=== PATIENT | female | born 1965 | race Caucasian/White ===

== ENCOUNTER 2020-09-27 17:25 | Inpatient (IN) | payer OTHER ==
[~2020-09-27] VITALS: Ht 152.4 cm; Wt 85.7 kg
[~2020-09-27 17:25] MED LIST: ARMOUR THYROID60 MG PO; B-125000 MCG PO; SPIRONOLACTONE100 MG PO; VITAMIN D2000 UNI1 PO
[2020-09-27] MEDS ORDERED: LEVOTHYROXINE50 MCG PO (17:59)
[2020-09-27] MEDS ORDERED: ACETAMINOPHEN 325 MG TAB PO NR (18:00)
[2020-09-27] MEDS ORDERED: SODIUM CHLORIDE 0.9% 50ML 50 ML ONE (18:09)
[2020-09-27] MEDS ORDERED: IOPAMIDOL 370 MG/ML 200 ML INFUS..BTL INJ ONE (18:09)
[2020-09-27] MEDS ORDERED: ACETAMINOPHEN 325 MG TAB ONE (18:12)
[2020-09-27] MEDS ORDERED: SODIUM CHLORIDE 0.9% 1000ML 1,000 ML IV SCH (20:15)
[2020-09-27] MEDS ORDERED: CEFTRIAXONE 1 GM VIAL IV ONE (20:15)
[2020-09-27] MEDS ORDERED: DEXAMETHASONE SOD PHOS 10 MG/1 ML VIAL IV ONE (20:15)
[2020-09-27] MEDS ORDERED: SODIUM CHLORIDE FLUSH 10 ML SYR INJ PRN (20:15)
[2020-09-27] MEDS ORDERED: SODIUM CHLORIDE 0.9% 250ML 250 ML ONE (20:33)
[2020-09-27] MEDS ORDERED: DEXAMETHASONE SOD PHOS INJ 4 MG/ML SDV ONE (20:33)
[2020-09-27] MEDS ORDERED: CEFTRIAXONE 1 GM VIAL ONE (20:34)
[2020-09-27] MEDS ORDERED: CEFTRIAXONE 1 GM in SODIUM CHLORIDE 0.9% 100 ML IV ONE (20:45)
[2020-09-28] VITALS (8 sets, daily range): BP systolic 97–130; BP diastolic 58–74
[2020-09-28 05:52] LABS: BASOPHILS % 0.2 % (0.0-1.0); HEMATOCRIT 44.1 % (34.2-44.1); HEMOGLOBIN 14.4 g/dL (12.0-16.0); LYMPHOCYTES # (AUTO) 0.7 (1.0-3.2); LYMPHOCYTES % 16.2 % (18.0-39.1); MEAN CORPUSCULAR HEMOGLOBIN 26.7 pg (28-32); MEAN CORPUSCULAR HGB CONC 32.7 g/dL (31-35); MEAN CORPUSCULAR VOLUME 81.7 fL (81-99); MONOCYTES # (AUTO) 0.2 (0.2-0.8); MONOCYTES % 3.9 % (4.4-11.3); NEUTROPHILS # (AUTO) 3.4 (2.1-6.9); NEUTROPHILS % 78.8 % (38.7-80.0); PLATELET COUNT 131 x10e3/uL (140-360); RED CELL DISTRIBUTION WIDTH 14.5 % (11.7-14.4)
[2020-09-28 07:28] LABS: ANION GAP 15.8 mmol/L (8-16); CALCIUM 8.3 mg/dL (8.4-10.2); CREATININE, SERUM 0.94 mg/dL (0.57-1.11); POTASSIUM 3.8 mmol/L (3.5-5.1)
[2020-09-28 07:46] LABS: ALBUMIN 2.8 g/dL (3.5-5.0); ALBUMIN/GLOBULIN RATIO 0.6 (0.8-2.0)
[2020-09-28] MEDS: ZINC SULFATE 220 MG CAP PO SCH (09:05)
[2020-09-28] MEDS: ENOXAPARIN 30 MG/0.3 ML SYR SC SCH ×2 (09:05→17:03)
[2020-09-28] MEDS: ASCORBIC ACID 500 MG TAB PO SCH ×2 (09:05→17:03)
[2020-09-28] MEDS: DEXAMETHASONE SOD PHOS 10 MG/1 ML VIAL IV SCH (09:05)
[2020-09-28] MEDS ORDERED: REMDESIVIR 200MG 200 MG IV ONE (12:00)
[2020-09-28] MEDS: CEFTRIAXONE 2 GM in SODIUM CHLORIDE 0.9% 100 ML IV SCH (12:31)
[2020-09-28] MEDS: ALBUTEROL SULFATE HFA 8GM INHALATION AEROSOL INH PRN (20:27)
[2020-09-29] VITALS (9 sets, daily range): BP systolic 94–120; BP diastolic 50–82
[2020-09-29] MEDS: ALBUTEROL SULFATE HFA 8GM INHALATION AEROSOL INH PRN (02:00)
[2020-09-29] MEDS: LEVOTHYROXINE SODIUM 50 MCG TAB PO SCH (05:37)
[2020-09-29 07:24] LABS: ALBUMIN 2.6 g/dL (3.5-5.0); ALBUMIN/GLOBULIN RATIO 0.6 (0.8-2.0); ANION GAP 15.1 mmol/L (8-16); CALCIUM 8.3 mg/dL (8.4-10.2); CREATININE, SERUM 0.84 mg/dL (0.57-1.11); POTASSIUM 4.1 mmol/L (3.5-5.1)
[2020-09-29] MEDS: ACETAMINOPHEN 325 MG TAB PO PRN ×2 (07:55→20:00)
[2020-09-29] MEDS: ASCORBIC ACID 500 MG TAB PO SCH ×2 (09:14→17:15)
[2020-09-29] MEDS: ENOXAPARIN 30 MG/0.3 ML SYR SC SCH ×2 (09:14→17:15)
[2020-09-29] MEDS: DEXAMETHASONE SOD PHOS 10 MG/1 ML VIAL IV SCH (09:14)
[2020-09-29] MEDS: ZINC SULFATE 220 MG CAP PO SCH (09:14)
[2020-09-29] MEDS: CEFTRIAXONE 2 GM in SODIUM CHLORIDE 0.9% 100 ML IV SCH (11:00)
[2020-09-29] MEDS: REMDESIVIR 100MG 100 MG IV SCH (14:28)
[2020-09-29] MEDS: CHOLESTYRAMINE 4 GM PACKET PO SCH (17:15)
[2020-09-30] VITALS (8 sets, daily range): BP systolic 103–118; BP diastolic 59–73
[2020-09-30] MEDS: CALCIUM CARBONATE 500 MG CHEWABLE TABS PO PRN ×2 (00:40→10:18)
[2020-09-30] MEDS: LEVOTHYROXINE SODIUM 50 MCG TAB PO SCH (05:31)
[2020-09-30 06:46] LABS: BASOPHILS % 0.1 % (0.0-1.0); HEMATOCRIT 42.4 % (34.2-44.1); HEMOGLOBIN 14.6 g/dL (12.0-16.0); LYMPHOCYTES # (AUTO) 0.9 (1.0-3.2); LYMPHOCYTES % 10.4 % (18.0-39.1); MEAN CORPUSCULAR HEMOGLOBIN 27.9 pg (28-32); MEAN CORPUSCULAR HGB CONC 34.4 g/dL (31-35); MEAN CORPUSCULAR VOLUME 81.1 fL (81-99); MONOCYTES # (AUTO) 0.6 (0.2-0.8); MONOCYTES % 7.6 % (4.4-11.3); NEUTROPHILS # (AUTO) 6.7 (2.1-6.9); NEUTROPHILS % 80.4 % (38.7-80.0); PLATELET COUNT 169 x10e3/uL (140-360); RED BLOOD COUNT 5.23 x10e6/uL (3.6-5.1); RED CELL DISTRIBUTION WIDTH 14.6 % (11.7-14.4)
[2020-09-30 07:20] LABS: ANION GAP 16.9 mmol/L (8-16); CALCIUM 8.5 mg/dL (8.4-10.2); CREATININE, SERUM 0.71 mg/dL (0.57-1.11); POTASSIUM 3.9 mmol/L (3.5-5.1)
[2020-09-30] MEDS: DEXAMETHASONE SOD PHOS 10 MG/1 ML VIAL IV SCH (09:07)
[2020-09-30] MEDS: ZINC SULFATE 220 MG CAP PO SCH (09:07)
[2020-09-30] MEDS: ASCORBIC ACID 500 MG TAB PO SCH ×2 (09:07→17:02)
[2020-09-30] MEDS: CHOLESTYRAMINE 4 GM PACKET PO SCH ×2 (09:07→17:02)
[2020-09-30] MEDS: ENOXAPARIN 30 MG/0.3 ML SYR SC SCH ×2 (09:08→17:02)
[2020-09-30 10:13] LABS: ALBUMIN 2.6 g/dL (3.5-5.0); ALBUMIN/GLOBULIN RATIO 0.7 (0.8-2.0); ANION GAP 15.6 mmol/L (8-16); CALCIUM 8.4 mg/dL (8.4-10.2); CREATININE, SERUM 0.75 mg/dL (0.57-1.11); POTASSIUM 3.6 mmol/L (3.5-5.1)
[2020-09-30] MEDS: CEFTRIAXONE 2 GM in SODIUM CHLORIDE 0.9% 100 ML IV SCH (11:11)
[2020-09-30] MEDS: REMDESIVIR 100MG 100 MG IV SCH (14:39)
[2020-10-01] VITALS (8 sets, daily range): BP systolic 103–126; BP diastolic 45–74
[2020-10-01] MEDS: LEVOTHYROXINE SODIUM 50 MCG TAB PO SCH (05:21)
[2020-10-01 06:53] LABS: BASOPHILS % 0.2 % (0.0-1.0); HEMATOCRIT 43.7 % (34.2-44.1); HEMOGLOBIN 13.9 g/dL (12.0-16.0); LYMPHOCYTES # (AUTO) 1.2 (1.0-3.2); LYMPHOCYTES % 13.4 % (18.0-39.1); MEAN CORPUSCULAR HGB CONC 31.8 g/dL (31-35); MEAN CORPUSCULAR VOLUME 81.8 fL (81-99); MONOCYTES # (AUTO) 0.7 (0.2-0.8); MONOCYTES % 7.8 % (4.4-11.3); NEUTROPHILS # (AUTO) 6.7 (2.1-6.9); NEUTROPHILS % 76.1 % (38.7-80.0); PLATELET COUNT 201 x10e3/uL (140-360); RED BLOOD COUNT 5.34 x10e6/uL (3.6-5.1); RED CELL DISTRIBUTION WIDTH 14.5 % (11.7-14.4)
[2020-10-01 07:13] LABS: ALBUMIN 2.5 g/dL (3.5-5.0); ALBUMIN/GLOBULIN RATIO 0.6 (0.8-2.0); ANION GAP 16.7 mmol/L (8-16); CALCIUM 8.3 mg/dL (8.4-10.2); CREATININE, SERUM 0.79 mg/dL (0.57-1.11); POTASSIUM 3.7 mmol/L (3.5-5.1)
[2020-10-01 07:24] LABS: LYMPHOCYTES % (MANUAL) 15 % (19-48); MONOCYTES % (MANUAL) 6 % (3.4-9.0); NEUTROPHILS % (MANUAL) 79 % (40-74); RBC MORPHOLOGY COMMENT NORMAL
[2020-10-01 07:25] LABS: PLATELET ESTIMATE ADEQUATE; PLATELET MORPHOLOGY COMMENT NORMAL
[2020-10-01] MEDS ORDERED: SODIUM CHLORIDE 0.9% 100 ML ONE (07:36)
[2020-10-01] MEDS: ZINC SULFATE 220 MG CAP PO SCH (07:55)
[2020-10-01] MEDS: ASCORBIC ACID 500 MG TAB PO SCH ×2 (07:55→16:25)
[2020-10-01] MEDS: CHOLESTYRAMINE 4 GM PACKET PO SCH ×2 (07:55→16:25)
[2020-10-01] MEDS: DEXAMETHASONE SOD PHOS 10 MG/1 ML VIAL IV SCH (07:55)
[2020-10-01] MEDS ORDERED: SODIUM CHLORIDE 0.9% 250ML 250 ML ONE (08:02)
[2020-10-01] MEDS: ENOXAPARIN 30 MG/0.3 ML SYR SC SCH ×2 (08:35→16:25)
[2020-10-01] MEDS ORDERED: SODIUM CHLORIDE 0.9% 500ML 500 ML ONE (10:40)
[2020-10-01] MEDS: CEFTRIAXONE 2 GM in SODIUM CHLORIDE 0.9% 100 ML IV SCH (11:18)
[2020-10-01] MEDS: ONDANSETRON HCL INJ 2MG/ML 2ML 2 MG/ML VIAL IV PRN (12:10)
[2020-10-01] MEDS: REMDESIVIR 100MG 100 MG IV SCH (12:55)
[2020-10-01] MEDS ORDERED: TOCILIZUMAB 400 MG in SODIUM CHLORIDE 0.9% 100 ML IV ONE (14:00)
[2020-10-01] MEDS: CALCIUM CARBONATE 500 MG CHEWABLE TABS PO PRN (19:53)
[2020-10-02 01:14] VITALS: BP 99/54
[2020-10-02 05:11] VITALS: BP 97/55
[2020-10-02] MEDS: LEVOTHYROXINE SODIUM 50 MCG TAB PO SCH (06:28)
[2020-10-02 07:06] LABS: BASOPHILS % 0.2 % (0.0-1.0); EOSINOPHILS % 0.1 % (0.0-6.0); HEMATOCRIT 40.4 % (34.2-44.1); HEMOGLOBIN 13.2 g/dL (12.0-16.0); LYMPHOCYTES # (AUTO) 1.4 (1.0-3.2); LYMPHOCYTES % 13.5 % (18.0-39.1); MEAN CORPUSCULAR HEMOGLOBIN 26.5 pg (28-32); MEAN CORPUSCULAR HGB CONC 32.7 g/dL (31-35); MONOCYTES # (AUTO) 0.5 (0.2-0.8); MONOCYTES % 4.6 % (4.4-11.3); NEUTROPHILS # (AUTO) 8.4 (2.1-6.9); NEUTROPHILS % 79.8 % (38.7-80.0); PLATELET COUNT 215 x10e3/uL (140-360); RED BLOOD COUNT 4.99 x10e6/uL (3.6-5.1); RED CELL DISTRIBUTION WIDTH 14.3 % (11.7-14.4)
[2020-10-02 07:34] LABS: ALBUMIN 2.3 g/dL (3.5-5.0); ALBUMIN/GLOBULIN RATIO 0.6 (0.8-2.0); ANION GAP 13.7 mmol/L (8-16); CREATININE, SERUM 0.69 mg/dL (0.57-1.11); POTASSIUM 3.7 mmol/L (3.5-5.1)
[2020-10-02 08:36] LABS: BAND NEUTROPHILS % (MANUAL) 4 %; LYMPHOCYTES % (MANUAL) 12 % (19-48); MONOCYTES % (MANUAL) 4 % (3.4-9.0); NEUTROPHILS % (MANUAL) 80 % (40-74)
[2020-10-02 09:00] VITALS: BP 97/55
[2020-10-02] MEDS: CHOLESTYRAMINE 4 GM PACKET PO SCH ×2 (09:00→17:00)
[2020-10-02] MEDS: ZINC SULFATE 220 MG CAP PO SCH (11:39)
[2020-10-02] MEDS: ASCORBIC ACID 500 MG TAB PO SCH ×2 (11:39→19:41)
[2020-10-02] MEDS: ACETAMINOPHEN 325 MG TAB PO PRN (11:40)
[2020-10-02] MEDS: ENOXAPARIN 30 MG/0.3 ML SYR SC SCH ×2 (11:51→19:41)
[2020-10-02] MEDS: DEXAMETHASONE SOD PHOS 10 MG/1 ML VIAL IV SCH (11:51)
[2020-10-02] MEDS: REMDESIVIR 100MG 100 MG IV SCH (15:00)
[2020-10-02] MEDS: CEFTRIAXONE 2 GM in SODIUM CHLORIDE 0.9% 100 ML IV SCH (15:16)
[2020-10-02 16:08] VITALS: BP 102/50
[2020-10-02] MEDS: HYDROCODONE/APAP 5MG-325MG TAB PO PRN (19:41)
[2020-10-02 20:00] VITALS: BP 107/59
[2020-10-02 23:11] VITALS: BP 107/59
[2020-10-03] VITALS (9 sets, daily range): BP systolic 87–112; BP diastolic 46–70
[2020-10-03] MEDS: HYDROCODONE/APAP 5MG-325MG TAB PO PRN ×2 (05:17→21:03)
[2020-10-03] MEDS: LEVOTHYROXINE SODIUM 50 MCG TAB PO SCH (05:17)
[2020-10-03 05:39] LABS: ALBUMIN 2.2 g/dL (3.5-5.0); ALBUMIN/GLOBULIN RATIO 0.5 (0.8-2.0); ANION GAP 16.1 mmol/L (8-16); CALCIUM 8.2 mg/dL (8.4-10.2); CREATININE, SERUM 0.64 mg/dL (0.57-1.11); POTASSIUM 4.1 mmol/L (3.5-5.1)
[2020-10-03 07:22] LABS: BASOPHILS % 0.1 % (0.0-1.0); EOSINOPHILS % 0.2 % (0.0-6.0); HEMATOCRIT 39.7 % (34.2-44.1); HEMOGLOBIN 12.9 g/dL (12.0-16.0); LYMPHOCYTES # (AUTO) 1.1 (1.0-3.2); LYMPHOCYTES % 7.5 % (18.0-39.1); MEAN CORPUSCULAR HEMOGLOBIN 26.4 pg (28-32); MEAN CORPUSCULAR HGB CONC 32.5 g/dL (31-35); MEAN CORPUSCULAR VOLUME 81.2 fL (81-99); MONOCYTES # (AUTO) 0.5 (0.2-0.8); MONOCYTES % 3.6 % (4.4-11.3); NEUTROPHILS # (AUTO) 12.5 (2.1-6.9); NEUTROPHILS % 87.1 % (38.7-80.0); PLATELET COUNT 193 x10e3/uL (140-360); RED BLOOD COUNT 4.89 x10e6/uL (3.6-5.1)
[2020-10-03] MEDS: DEXAMETHASONE SOD PHOS 10 MG/1 ML VIAL IV SCH (08:13)
[2020-10-03] MEDS: CHOLESTYRAMINE 4 GM PACKET PO SCH ×2 (08:13→16:52)
[2020-10-03] MEDS: ENOXAPARIN 30 MG/0.3 ML SYR SC SCH ×2 (08:13→16:52)
[2020-10-03] MEDS: GUAIFENESIN/CODEINE 10 ML CUP PO PRN ×2 (08:15→21:03)
[2020-10-03] MEDS: ASCORBIC ACID 500 MG TAB PO SCH ×2 (09:13→17:26)
[2020-10-03] MEDS: ZINC SULFATE 220 MG CAP PO SCH (09:13)
[2020-10-04] VITALS (7 sets, daily range): BP systolic 100–116; BP diastolic 52–66
[2020-10-04 04:18] LABS: BASOPHILS % 0.2 % (0.0-1.0); EOSINOPHILS % 0.1 % (0.0-6.0); LYMPHOCYTES # (AUTO) 0.8 (1.0-3.2); LYMPHOCYTES % 6.5 % (18.0-39.1); MEAN CORPUSCULAR HEMOGLOBIN 26.5 pg (28-32); MEAN CORPUSCULAR HGB CONC 32.5 g/dL (31-35); MEAN CORPUSCULAR VOLUME 81.6 fL (81-99); MONOCYTES # (AUTO) 0.3 (0.2-0.8); MONOCYTES % 2.7 % (4.4-11.3); NEUTROPHILS # (AUTO) 11.2 (2.1-6.9); NEUTROPHILS % 88.9 % (38.7-80.0); PLATELET COUNT 160 x10e3/uL (140-360); RED CELL DISTRIBUTION WIDTH 13.9 % (11.7-14.4)
[2020-10-04 05:28] LABS: ALBUMIN 2.1 g/dL (3.5-5.0); ALBUMIN/GLOBULIN RATIO 0.5 (0.8-2.0); ANION GAP 13.2 mmol/L (8-16); CALCIUM 8.1 mg/dL (8.4-10.2); CREATININE, SERUM 0.64 mg/dL (0.57-1.11); POTASSIUM 4.2 mmol/L (3.5-5.1)
[2020-10-04] MEDS: LEVOTHYROXINE SODIUM 50 MCG TAB PO SCH (06:07)
[2020-10-04] MEDS: CHOLESTYRAMINE 4 GM PACKET PO SCH ×2 (08:03→17:24)
[2020-10-04] MEDS: DEXAMETHASONE SOD PHOS 10 MG/1 ML VIAL IV SCH (08:03)
[2020-10-04] MEDS: ENOXAPARIN 30 MG/0.3 ML SYR SC SCH ×2 (08:07→17:24)
[2020-10-04] MEDS: ZINC SULFATE 220 MG CAP PO SCH (09:05)
[2020-10-04] MEDS: ASCORBIC ACID 500 MG TAB PO SCH ×2 (09:05→17:24)
[2020-10-04] MEDS: CALCIUM CARBONATE 500 MG CHEWABLE TABS PO PRN (18:39)
[2020-10-05] VITALS (8 sets, daily range): BP systolic 81–107; BP diastolic 52–75
[2020-10-05] MEDS: GUAIFENESIN/CODEINE 10 ML CUP PO PRN (04:26)
[2020-10-05] MEDS: LEVOTHYROXINE SODIUM 50 MCG TAB PO SCH (06:00)
[2020-10-05 06:33] LABS: BASOPHILS % 0.2 % (0.0-1.0); EOSINOPHILS # (AUTO) 0.1 (0.0-0.4); EOSINOPHILS % 0.8 % (0.0-6.0); HEMATOCRIT 40.2 % (34.2-44.1); HEMOGLOBIN 13.3 g/dL (12.0-16.0); LYMPHOCYTES # (AUTO) 0.8 (1.0-3.2); LYMPHOCYTES % 4.9 % (18.0-39.1); MEAN CORPUSCULAR HEMOGLOBIN 26.9 pg (28-32); MEAN CORPUSCULAR HGB CONC 33.1 g/dL (31-35); MEAN CORPUSCULAR VOLUME 81.2 fL (81-99); MONOCYTES # (AUTO) 0.3 (0.2-0.8); MONOCYTES % 1.7 % (4.4-11.3); NEUTROPHILS # (AUTO) 14.7 (2.1-6.9); NEUTROPHILS % 91.1 % (38.7-80.0); PLATELET COUNT 186 x10e3/uL (140-360); RED BLOOD COUNT 4.95 x10e6/uL (3.6-5.1); RED CELL DISTRIBUTION WIDTH 14.2 % (11.7-14.4)
[2020-10-05] MEDS: HYDROCODONE/APAP 5MG-325MG TAB PO PRN (06:33)
[2020-10-05 06:53] LABS: ALBUMIN 2.2 g/dL (3.5-5.0); ALBUMIN/GLOBULIN RATIO 0.5 (0.8-2.0); ANION GAP 14.7 mmol/L (8-16); CALCIUM 7.9 mg/dL (8.4-10.2); CREATININE, SERUM 0.62 mg/dL (0.57-1.11); POTASSIUM 3.7 mmol/L (3.5-5.1)
[2020-10-05] MEDS: CHOLESTYRAMINE 4 GM PACKET PO SCH ×2 (08:19→16:08)
[2020-10-05] MEDS: ASCORBIC ACID 500 MG TAB PO SCH ×2 (09:01→16:08)
[2020-10-05] MEDS: ZINC SULFATE 220 MG CAP PO SCH (09:01)
[2020-10-05] MEDS: ENOXAPARIN 30 MG/0.3 ML SYR SC SCH (20:48)
[2020-10-06] VITALS (8 sets, daily range): BP systolic 94–103; BP diastolic 46–76
[2020-10-06] MEDS: GUAIFENESIN/CODEINE 10 ML CUP PO PRN ×2 (01:20→20:40)
[2020-10-06] MEDS: LEVOTHYROXINE SODIUM 50 MCG TAB PO SCH ×2 (05:22→21:56)
[2020-10-06] MEDS: ONDANSETRON HCL INJ 2MG/ML 2ML 2 MG/ML VIAL IV PRN (05:30)
[2020-10-06] MEDS: HYDROCODONE/APAP 5MG-325MG TAB PO PRN (05:31)
[2020-10-06 05:45] LABS: BASOPHILS % 0.2 % (0.0-1.0); EOSINOPHILS # (AUTO) 0.1 (0.0-0.4); EOSINOPHILS % 0.9 % (0.0-6.0); HEMATOCRIT 41.6 % (34.2-44.1); HEMOGLOBIN 13.3 g/dL (12.0-16.0); LYMPHOCYTES # (AUTO) 0.9 (1.0-3.2); LYMPHOCYTES % 5.7 % (18.0-39.1); MEAN CORPUSCULAR HEMOGLOBIN 26.3 pg (28-32); MEAN CORPUSCULAR VOLUME 82.2 fL (81-99); MONOCYTES # (AUTO) 0.2 (0.2-0.8); MONOCYTES % 1.3 % (4.4-11.3); NEUTROPHILS # (AUTO) 14.6 (2.1-6.9); NEUTROPHILS % 90.8 % (38.7-80.0); PLATELET COUNT 177 x10e3/uL (140-360); RED BLOOD COUNT 5.06 x10e6/uL (3.6-5.1); RED CELL DISTRIBUTION WIDTH 14.1 % (11.7-14.4)
[2020-10-06 06:16] LABS: ALBUMIN 2.1 g/dL (3.5-5.0); ALBUMIN/GLOBULIN RATIO 0.5 (0.8-2.0); ANION GAP 18.2 mmol/L (8-16); CALCIUM 8.1 mg/dL (8.4-10.2); CREATININE, SERUM 0.63 mg/dL (0.57-1.11); POTASSIUM 4.2 mmol/L (3.5-5.1)
[2020-10-06] MEDS: CHOLESTYRAMINE 4 GM PACKET PO SCH ×2 (08:06→16:05)
[2020-10-06] MEDS: ASCORBIC ACID 500 MG TAB PO SCH ×2 (08:06→16:05)
[2020-10-06] MEDS: ENOXAPARIN 30 MG/0.3 ML SYR SC SCH ×2 (08:06→20:40)
[2020-10-06] MEDS: ZINC SULFATE 220 MG CAP PO SCH (08:06)
[2020-10-06] MEDS: ACETAMINOPHEN 325 MG TAB PO PRN (15:35)
[2020-10-07] VITALS (13 sets, daily range): BP systolic 86–120; BP diastolic 50–87
[2020-10-07] MEDS: LEVOTHYROXINE SODIUM 50 MCG TAB PO SCH (05:02)
[2020-10-07 05:04] LABS: BASOPHILS % 0.2 % (0.0-1.0); EOSINOPHILS # (AUTO) 0.2 (0.0-0.4); EOSINOPHILS % 1.2 % (0.0-6.0); HEMATOCRIT 41.3 % (34.2-44.1); HEMOGLOBIN 13.4 g/dL (12.0-16.0); LYMPHOCYTES # (AUTO) 0.9 (1.0-3.2); LYMPHOCYTES % 5.3 % (18.0-39.1); MEAN CORPUSCULAR HEMOGLOBIN 26.6 pg (28-32); MEAN CORPUSCULAR HGB CONC 32.4 g/dL (31-35); MEAN CORPUSCULAR VOLUME 81.9 fL (81-99); MONOCYTES # (AUTO) 0.2 (0.2-0.8); NEUTROPHILS # (AUTO) 14.7 (2.1-6.9); NEUTROPHILS % 90.9 % (38.7-80.0); PLATELET COUNT 144 x10e3/uL (140-360); RED BLOOD COUNT 5.04 x10e6/uL (3.6-5.1); RED CELL DISTRIBUTION WIDTH 13.9 % (11.7-14.4)
[2020-10-07 05:28] LABS: ALBUMIN 1.9 g/dL (3.5-5.0); ALBUMIN/GLOBULIN RATIO 0.4 (0.8-2.0); ANION GAP 17.5 mmol/L (8-16); CALCIUM 8.1 mg/dL (8.4-10.2); CREATININE, SERUM 0.74 mg/dL (0.57-1.11); POTASSIUM 4.5 mmol/L (3.5-5.1)
[2020-10-07] MEDS: ZINC SULFATE 220 MG CAP PO SCH (08:11)
[2020-10-07] MEDS: ENOXAPARIN 30 MG/0.3 ML SYR SC SCH ×2 (08:11→20:22)
[2020-10-07] MEDS: ASCORBIC ACID 500 MG TAB PO SCH ×2 (08:11→16:24)
[2020-10-07] MEDS: CHOLESTYRAMINE 4 GM PACKET PO SCH ×2 (08:11→16:24)
[2020-10-07 08:21] LABS: BAND NEUTROPHILS % (MANUAL) 2 %; LYMPHOCYTES % (MANUAL) 6 % (19-48); MONOCYTES % (MANUAL) 1 % (3.4-9.0); NEUTROPHILS % (MANUAL) 91 % (40-74)
[2020-10-07 08:22] LABS: PLATELET ESTIMATE ADEQUATE; PLATELET MORPHOLOGY COMMENT NORMAL; RBC MORPHOLOGY COMMENT NORMAL
[2020-10-07] MEDS ORDERED: LACTATED RINGER'S 500 ML INJ ONE (11:00)
[2020-10-07] MEDS: ACETAMINOPHEN 325 MG TAB PO PRN ×2 (12:52)
[2020-10-07] MEDS ORDERED: SUCCINYLCHOLINE CHLORIDE 20 MG/ML 10ML VIAL ONE (13:41)
[2020-10-07] MEDS ORDERED: WATER STERILE 10 ML VIAL ONE (13:41)
[2020-10-07] MEDS ORDERED: VECURONIUM BROMIDE FOR INJ 20 MG VIAL ONE (13:41)
[2020-10-07] MEDS ORDERED: MIDAZOLAM HCL 2 MG/2 ML VIAL ONE (13:41)
[2020-10-07] MEDS ORDERED: ETOMIDATE 2 MG/ML 10 ML INJ IV ONE (13:41)
[2020-10-07] MEDS: PIPERACILLIN/TAZOBACTAM 3.375 GM in SODIUM CHLORIDE 0.9% 50ML 50 ML IV SCH ×2 (15:37→20:22)
[2020-10-07] MEDS: LIDOCAINE 4% PATCH TP SCH (20:22)
[2020-10-07] MEDS ORDERED: DEXMEDETOMIDINE 200MCG/NS 50ML 50 ML IV PRN (22:15)
[2020-10-08] VITALS (26 sets, daily range): BP systolic 73–132; BP diastolic 44–64
[2020-10-08] MEDS: PIPERACILLIN/TAZOBACTAM 3.375 GM in SODIUM CHLORIDE 0.9% 50ML 50 ML IV SCH ×4 (02:46→20:54)
[2020-10-08] MEDS: GUAIFENESIN/CODEINE 10 ML CUP PO PRN (04:25)
[2020-10-08 04:53] LABS: BASOPHILS % 0.2 % (0.0-1.0); EOSINOPHILS # (AUTO) 0.1 (0.0-0.4); EOSINOPHILS % 0.3 % (0.0-6.0); HEMATOCRIT 37.4 % (34.2-44.1); LYMPHOCYTES # (AUTO) 0.6 (1.0-3.2); LYMPHOCYTES % 3.1 % (18.0-39.1); MEAN CORPUSCULAR HEMOGLOBIN 26.5 pg (28-32); MEAN CORPUSCULAR HGB CONC 32.1 g/dL (31-35); MEAN CORPUSCULAR VOLUME 82.6 fL (81-99); MONOCYTES # (AUTO) 0.2 (0.2-0.8); MONOCYTES % 1.2 % (4.4-11.3); NEUTROPHILS # (AUTO) 17.5 (2.1-6.9); NEUTROPHILS % 94.2 % (38.7-80.0); PLATELET COUNT 107 x10e3/uL (140-360); RED BLOOD COUNT 4.53 x10e6/uL (3.6-5.1); RED CELL DISTRIBUTION WIDTH 14.1 % (11.7-14.4)
[2020-10-08 05:09] LABS: ALBUMIN 1.5 g/dL (3.5-5.0); ALBUMIN/GLOBULIN RATIO 0.3 (0.8-2.0); ANION GAP 17.5 mmol/L (8-16); CALCIUM 7.8 mg/dL (8.4-10.2); CREATININE, SERUM 0.69 mg/dL (0.57-1.11); POTASSIUM 4.5 mmol/L (3.5-5.1)
[2020-10-08] MEDS: LEVOTHYROXINE SODIUM 50 MCG TAB PO SCH (06:09)
[2020-10-08] MEDS ORDERED: GUAIFENESIN/CODEINE 10 ML CUP PO PRN (07:30)
[2020-10-08] MEDS: ENOXAPARIN 30 MG/0.3 ML SYR SC SCH ×2 (08:08→20:54)
[2020-10-08] MEDS: ASCORBIC ACID 500 MG TAB PO SCH ×2 (08:08→16:12)
[2020-10-08] MEDS: ZINC SULFATE 220 MG CAP PO SCH (08:08)
[2020-10-08] MEDS: CHOLESTYRAMINE 4 GM PACKET PO SCH (08:09)
[2020-10-08] MEDS ORDERED: ROCURONIUM BROMIDE 1,250 MG in SODIUM CHLORIDE 0.9% 250ML 125 ML IV SCH (11:00)
[2020-10-08] MEDS ORDERED: SODIUM CHLORIDE 0.9% 1000ML 1,000 ML ONE (11:35)
[2020-10-08] MEDS: FENTANYL 2000MCG/NS 250 250 ML IV SCH ×2 (12:27→20:13)
[2020-10-08] MEDS: MIDAZOLAM HCL 5MG/ML 10ML VIAL 100 ML IV PRN ×3 (12:38→20:14)
[2020-10-08] MEDS: ROCURONIUM 1250MG/NS 250 250 ML IV SCH (16:12)
[2020-10-08] MEDS ORDERED: LACTATED RINGER'S 1,000 ML INJ ONE ×2 (16:30→17:30)
[2020-10-08 17:28] LABS: ABG HCO3 23 mmol/L (22-26); ABG PCO2 36 mmHg (35-45); ABG PH 7.41 (7.35-7.45); ABG PO2 101 mmHg (80-105); ABG TCO2 24
[2020-10-08] MEDS: ACETAMINOPHEN 325 MG TAB PO PRN (20:54)
[2020-10-08] MEDS: LIDOCAINE 4% PATCH TP SCH (20:54)
[2020-10-09] VITALS (25 sets, daily range): BP systolic 83–149; BP diastolic 42–69
[2020-10-09] MEDS: NOREPINEPHRINE 8 MG/D5W 250 ML 250 ML IV PRN ×2 (00:20→08:04)
[2020-10-09] MEDS: MIDAZOLAM HCL 5MG/ML 10ML VIAL 100 ML IV PRN ×5 (01:25→21:50)
[2020-10-09] MEDS: PIPERACILLIN/TAZOBACTAM 3.375 GM in SODIUM CHLORIDE 0.9% 50ML 50 ML IV SCH ×4 (01:47→21:07)
[2020-10-09 06:18] LABS: BASOPHILS # (AUTO) 0.1 (0.0-0.1); BASOPHILS % 0.3 % (0.0-1.0); EOSINOPHILS # (AUTO) 0.2 (0.0-0.4); EOSINOPHILS % 0.9 % (0.0-6.0); HEMATOCRIT 36.9 % (34.2-44.1); HEMOGLOBIN 11.9 g/dL (12.0-16.0); LYMPHOCYTES # (AUTO) 0.8 (1.0-3.2); LYMPHOCYTES % 3.6 % (18.0-39.1); MEAN CORPUSCULAR HEMOGLOBIN 26.9 pg (28-32); MEAN CORPUSCULAR HGB CONC 32.2 g/dL (31-35); MEAN CORPUSCULAR VOLUME 83.3 fL (81-99); MONOCYTES # (AUTO) 0.4 (0.2-0.8); MONOCYTES % 1.7 % (4.4-11.3); NEUTROPHILS # (AUTO) 20.4 (2.1-6.9); NEUTROPHILS % 91.5 % (38.7-80.0); PLATELET COUNT 134 x10e3/uL (140-360); RED BLOOD COUNT 4.43 x10e6/uL (3.6-5.1); RED CELL DISTRIBUTION WIDTH 14.2 % (11.7-14.4)
[2020-10-09] MEDS: LEVOTHYROXINE SODIUM 50 MCG TAB PO SCH (06:36)
[2020-10-09 06:40] LABS: ALBUMIN 1.4 g/dL (3.5-5.0); ALBUMIN/GLOBULIN RATIO 0.3 (0.8-2.0); ANION GAP 14.9 mmol/L (8-16); CALCIUM 7.7 mg/dL (8.4-10.2); CREATININE, SERUM 0.75 mg/dL (0.57-1.11); POTASSIUM 3.9 mmol/L (3.5-5.1)
[2020-10-09] MEDS: ASCORBIC ACID 500 MG TAB PO SCH ×2 (08:03→16:08)
[2020-10-09] MEDS: ZINC SULFATE 220 MG CAP PO SCH (08:03)
[2020-10-09] MEDS: ENOXAPARIN 30 MG/0.3 ML SYR SC SCH ×2 (08:03→21:07)
[2020-10-09 08:41] LABS: ABG HCO3 24 mmol/L (22-26); ABG PCO2 35 mmHg (35-45); ABG PH 7.45 (7.35-7.45); ABG PO2 201 mmHg (80-105); ABG TCO2 25
[2020-10-09] MEDS: FENTANYL 2000MCG/NS 250 250 ML IV SCH ×2 (10:08→16:48)
[2020-10-09] MEDS: ROCURONIUM 1250MG/NS 250 250 ML IV SCH (16:08)
[2020-10-09] MEDS: ACETAMINOPHEN 325 MG TAB PO PRN (18:46)
[2020-10-09] MEDS: LIDOCAINE 4% PATCH TP SCH (21:00)
[2020-10-10] VITALS (17 sets, daily range): BP systolic 84–187; BP diastolic 38–80
[2020-10-10] MEDS ORDERED: FENTANYL CITRATE/PF 100MCG/2 ML INJ ONE (01:06)
[2020-10-10] MEDS: PIPERACILLIN/TAZOBACTAM 3.375 GM in SODIUM CHLORIDE 0.9% 50ML 50 ML IV SCH ×4 (01:16→20:00)
[2020-10-10] MEDS: MIDAZOLAM HCL 5MG/ML 10ML VIAL 100 ML IV PRN ×5 (03:15→23:54)
[2020-10-10 06:07] LABS: BASOPHILS # (AUTO) 0.1 (0.0-0.1); BASOPHILS % 0.3 % (0.0-1.0); EOSINOPHILS # (AUTO) 0.3 (0.0-0.4); EOSINOPHILS % 1.9 % (0.0-6.0); HEMATOCRIT 34.3 % (34.2-44.1); HEMOGLOBIN 10.9 g/dL (12.0-16.0); LYMPHOCYTES # (AUTO) 0.8 (1.0-3.2); LYMPHOCYTES % 5.4 % (18.0-39.1); MEAN CORPUSCULAR HEMOGLOBIN 26.5 pg (28-32); MEAN CORPUSCULAR HGB CONC 31.8 g/dL (31-35); MEAN CORPUSCULAR VOLUME 83.5 fL (81-99); MONOCYTES # (AUTO) 0.2 (0.2-0.8); MONOCYTES % 1.3 % (4.4-11.3); NEUTROPHILS # (AUTO) 13.7 (2.1-6.9); NEUTROPHILS % 89.3 % (38.7-80.0); PLATELET COUNT 118 x10e3/uL (140-360); RED BLOOD COUNT 4.11 x10e6/uL (3.6-5.1); RED CELL DISTRIBUTION WIDTH 14.5 % (11.7-14.4)
[2020-10-10 06:38] LABS: ALBUMIN 1.1 g/dL (3.5-5.0); ALBUMIN/GLOBULIN RATIO 0.3 (0.8-2.0); ANION GAP 12.4 mmol/L (8-16); CALCIUM 7.3 mg/dL (8.4-10.2); CREATININE, SERUM 0.57 mg/dL (0.57-1.11); POTASSIUM 3.4 mmol/L (3.5-5.1)
[2020-10-10] MEDS: LEVOTHYROXINE SODIUM 50 MCG TAB PO SCH (06:40)
[2020-10-10] MEDS: NOREPINEPHRINE 8 MG/D5W 250 ML 250 ML IV PRN (06:41)
[2020-10-10] MEDS: FENTANYL 2000MCG/NS 250 250 ML IV SCH ×3 (06:43→19:30)
[2020-10-10 09:35] LABS: ABG HCO3 27 mmol/L (22-26); ABG PCO2 46 mmHg (35-45); ABG PH 7.37 (7.35-7.45); ABG PO2 63 mmHg (80-105); ABG TCO2 28
[2020-10-10] MEDS: ZINC SULFATE 220 MG CAP PO SCH (10:06)
[2020-10-10] MEDS: ENOXAPARIN 30 MG/0.3 ML SYR SC SCH ×2 (10:06→21:00)
[2020-10-10] MEDS: ASCORBIC ACID 500 MG TAB PO SCH ×2 (10:06→16:07)
[2020-10-10] MEDS: ROCURONIUM 1250MG/NS 250 250 ML IV SCH (16:05)
[2020-10-10] MEDS: LIDOCAINE 4% PATCH TP SCH (21:00)
[2020-10-10] MEDS: ACETAMINOPHEN 325 MG TAB PO PRN (23:48)
[2020-10-11] VITALS (16 sets, daily range): BP systolic 91–147; BP diastolic 51–75
[2020-10-11] MEDS: PIPERACILLIN/TAZOBACTAM 3.375 GM in SODIUM CHLORIDE 0.9% 50ML 50 ML IV SCH ×4 (02:19→21:00)
[2020-10-11 04:54] LABS: BASOPHILS # (AUTO) 0.1 (0.0-0.1); BASOPHILS % 0.3 % (0.0-1.0); EOSINOPHILS # (AUTO) 0.2 (0.0-0.4); EOSINOPHILS % 1.7 % (0.0-6.0); HEMATOCRIT 35.3 % (34.2-44.1); HEMOGLOBIN 10.8 g/dL (12.0-16.0); MEAN CORPUSCULAR HEMOGLOBIN 26.5 pg (28-32); MEAN CORPUSCULAR HGB CONC 30.6 g/dL (31-35); MEAN CORPUSCULAR VOLUME 86.5 fL (81-99); MONOCYTES # (AUTO) 0.4 (0.2-0.8); MONOCYTES % 2.7 % (4.4-11.3); NEUTROPHILS # (AUTO) 12.4 (2.1-6.9); NEUTROPHILS % 85.9 % (38.7-80.0); PLATELET COUNT 110 x10e3/uL (140-360); RED BLOOD COUNT 4.08 x10e6/uL (3.6-5.1); RED CELL DISTRIBUTION WIDTH 14.7 % (11.7-14.4)
[2020-10-11 05:23] LABS: ALBUMIN 1.2 g/dL (3.5-5.0); ALBUMIN/GLOBULIN RATIO 0.2 (0.8-2.0); CALCIUM 7.6 mg/dL (8.4-10.2); CREATININE, SERUM 0.69 mg/dL (0.57-1.11)
[2020-10-11] MEDS: LEVOTHYROXINE SODIUM 50 MCG TAB PO SCH (05:30)
[2020-10-11 08:22] LABS: ABG HCO3 28 mmol/L (22-26); ABG PCO2 47 mmHg (35-45); ABG PH 7.39 (7.35-7.45); ABG PO2 125 mmHg (80-105); ABG TCO2 30
[2020-10-11] MEDS: ENOXAPARIN 30 MG/0.3 ML SYR SC SCH ×2 (08:39→21:00)
[2020-10-11] MEDS: ASCORBIC ACID 500 MG TAB PO SCH ×2 (08:39→18:07)
[2020-10-11] MEDS: ZINC SULFATE 220 MG CAP PO SCH (08:39)
[2020-10-11] MEDS: ROCURONIUM 1250MG/NS 250 250 ML IV SCH (10:02)
[2020-10-11] MEDS: FENTANYL 2000MCG/NS 250 250 ML IV SCH (10:03)
[2020-10-11] MEDS: NOREPINEPHRINE 8 MG/D5W 250 ML 250 ML IV PRN (10:04)
[2020-10-11] MEDS: MIDAZOLAM HCL 5MG/ML 10ML VIAL 100 ML IV PRN ×2 (10:06→19:19)
[2020-10-11] MEDS: ALBUMIN 25% 25GM 100ML 0.25 GM/ML BTL IV SCH ×2 (14:00→22:11)
[2020-10-11] MEDS: FUROSEMIDE INJ 10 MG/ML 4 ML VIAL IV SCH ×2 (14:00→21:00)
[2020-10-11] MEDS: METHYLPREDNISOLONE SOD SUCC 40 MG/ML VIAL 1ML IV SCH ×2 (14:00→22:11)
[2020-10-11] MEDS ORDERED: MIDAZOLAM HCL 5MG/ML 10ML VIAL 100 ML IV ONE (19:26)
[2020-10-11] MEDS: LIDOCAINE 4% PATCH TP SCH (21:00)
[2020-10-12] VITALS (25 sets, daily range): BP systolic 90–160; BP diastolic 47–78
[2020-10-12] MEDS: MIDAZOLAM HCL 5MG/ML 10ML VIAL 100 ML IV PRN ×5 (01:45→23:07)
[2020-10-12] MEDS: PIPERACILLIN/TAZOBACTAM 3.375 GM in SODIUM CHLORIDE 0.9% 50ML 50 ML IV SCH ×4 (02:06→20:33)
[2020-10-12 05:23] LABS: BASOPHILS % 0.2 % (0.0-1.0); HEMATOCRIT 29.8 % (34.2-44.1); HEMOGLOBIN 9.5 g/dL (12.0-16.0); LYMPHOCYTES # (AUTO) 0.7 (1.0-3.2); LYMPHOCYTES % 6.3 % (18.0-39.1); MEAN CORPUSCULAR HEMOGLOBIN 26.8 pg (28-32); MEAN CORPUSCULAR HGB CONC 31.9 g/dL (31-35); MEAN CORPUSCULAR VOLUME 84.2 fL (81-99); MONOCYTES # (AUTO) 0.3 (0.2-0.8); MONOCYTES % 2.3 % (4.4-11.3); NEUTROPHILS # (AUTO) 9.7 (2.1-6.9); NEUTROPHILS % 87.6 % (38.7-80.0); PLATELET COUNT 106 x10e3/uL (140-360); RED BLOOD COUNT 3.54 x10e6/uL (3.6-5.1); RED CELL DISTRIBUTION WIDTH 14.4 % (11.7-14.4)
[2020-10-12] MEDS: LEVOTHYROXINE SODIUM 50 MCG TAB PO SCH (05:31)
[2020-10-12] MEDS: METHYLPREDNISOLONE SOD SUCC 40 MG/ML VIAL 1ML IV SCH ×2 (05:31→17:42)
[2020-10-12] MEDS: ALBUMIN 25% 25GM 100ML 0.25 GM/ML BTL IV SCH (05:31)
[2020-10-12 05:44] LABS: ALBUMIN 2.3 g/dL (3.5-5.0); ALBUMIN/GLOBULIN RATIO 0.5 (0.8-2.0); ANION GAP 17.3 mmol/L (8-16); CALCIUM 7.6 mg/dL (8.4-10.2); CREATININE, SERUM 0.81 mg/dL (0.57-1.11); POTASSIUM 3.3 mmol/L (3.5-5.1)
[2020-10-12] MEDS: FENTANYL 2000MCG/NS 250 250 ML IV SCH ×3 (06:49→20:15)
[2020-10-12] MEDS: ZINC SULFATE 220 MG CAP PO SCH (06:56)
[2020-10-12] MEDS: ASCORBIC ACID 500 MG TAB PO SCH ×2 (06:56→16:38)
[2020-10-12] MEDS: ENOXAPARIN 30 MG/0.3 ML SYR SC SCH ×2 (06:56→20:33)
[2020-10-12] MEDS ORDERED: POTASSIUM CHLORIDE 20MEQ/100ML 200 ML IV ONE (08:15)
[2020-10-12] MEDS ORDERED: FUROSEMIDE INJ 10 MG/ML 4 ML VIAL IV ONE (08:45)
[2020-10-12 09:39] LABS: ABG PCO2 47 mmHg (35-45); ABG PH 7.46 (7.35-7.45)
[2020-10-12 09:40] LABS: ABG HCO3 34 mmol/L (22-26); ABG PO2 100 mmHg (80-105); ABG TCO2 35
[2020-10-12] MEDS: ROCURONIUM 1250MG/NS 250 250 ML IV SCH (16:38)
[2020-10-12] MEDS: LIDOCAINE 4% PATCH TP SCH (20:33)
[2020-10-13] VITALS (25 sets, daily range): BP systolic 95–155; BP diastolic 49–78
[2020-10-13] MEDS: PIPERACILLIN/TAZOBACTAM 3.375 GM in SODIUM CHLORIDE 0.9% 50ML 50 ML IV SCH ×4 (01:56→20:30)
[2020-10-13] MEDS ORDERED: HEPARIN SOD/SOD CHLORIDE 1,000 ML ONE (02:37)
[2020-10-13] MEDS: FENTANYL 2000MCG/NS 250 250 ML IV SCH ×2 (03:35→10:16)
[2020-10-13] MEDS: NOREPINEPHRINE 8 MG/D5W 250 ML 250 ML IV PRN (03:40)
[2020-10-13] MEDS: MIDAZOLAM HCL 5MG/ML 10ML VIAL 100 ML IV PRN ×3 (03:40→13:41)
[2020-10-13] MEDS: ROCURONIUM 1250MG/NS 250 250 ML IV SCH (03:45)
[2020-10-13] MEDS: LEVOTHYROXINE SODIUM 50 MCG TAB PO SCH (06:14)
[2020-10-13] MEDS: METHYLPREDNISOLONE SOD SUCC 40 MG/ML VIAL 1ML IV SCH ×2 (06:14→16:42)
[2020-10-13 06:53] LABS: BASOPHILS % 0.3 % (0.0-1.0); EOSINOPHILS % 0.1 % (0.0-6.0); HEMATOCRIT 28.4 % (34.2-44.1); HEMOGLOBIN 8.5 g/dL (12.0-16.0); LYMPHOCYTES # (AUTO) 0.9 (1.0-3.2); LYMPHOCYTES % 7.2 % (18.0-39.1); MEAN CORPUSCULAR HEMOGLOBIN 26.2 pg (28-32); MEAN CORPUSCULAR HGB CONC 29.9 g/dL (31-35); MEAN CORPUSCULAR VOLUME 87.7 fL (81-99); MONOCYTES # (AUTO) 0.7 (0.2-0.8); MONOCYTES % 5.6 % (4.4-11.3); NEUTROPHILS # (AUTO) 10.2 (2.1-6.9); NEUTROPHILS % 82.1 % (38.7-80.0); PLATELET COUNT 131 x10e3/uL (140-360); RED BLOOD COUNT 3.24 x10e6/uL (3.6-5.1); RED CELL DISTRIBUTION WIDTH 15.1 % (11.7-14.4)
[2020-10-13 07:14] LABS: ALBUMIN 2.3 g/dL (3.5-5.0); ALBUMIN/GLOBULIN RATIO 0.6 (0.8-2.0); ANION GAP 16.9 mmol/L (8-16); CREATININE, SERUM 0.75 mg/dL (0.57-1.11); POTASSIUM 3.9 mmol/L (3.5-5.1)
[2020-10-13] MEDS: ENOXAPARIN 30 MG/0.3 ML SYR SC SCH ×2 (08:40→20:30)
[2020-10-13] MEDS: ZINC SULFATE 220 MG CAP PO SCH (08:40)
[2020-10-13] MEDS: ASCORBIC ACID 500 MG TAB PO SCH ×2 (08:40→16:42)
[2020-10-13 09:19] LABS: ABG HCO3 35 mmol/L (22-26); ABG PCO2 51 mmHg (35-45); ABG PH 7.43 (7.35-7.45); ABG PO2 84 mmHg (80-105); ABG TCO2 36
[2020-10-13] MEDS ORDERED: PROPOFOL IV EMULSION 10MG/ML 100 ML IV SCH (13:15)
[2020-10-13] MEDS: PROPOFOL IV EMULSION 10MG/ML 100 ML IV SCH (13:45)
[2020-10-13] MEDS ORDERED: FLUCONAZOLE 100 MG/NS 50 ML 50 ML IV SCH (17:00)
[2020-10-13] MEDS: LIDOCAINE 4% PATCH TP SCH (21:00)
[2020-10-14] VITALS (26 sets, daily range): BP systolic 91–196; BP diastolic 46–84
[2020-10-14] MEDS: FENTANYL 2000MCG/NS 250 250 ML IV SCH ×4 (00:11→22:04)
[2020-10-14] MEDS: MIDAZOLAM HCL 5MG/ML 10ML VIAL 100 ML IV PRN ×5 (00:11→22:04)
[2020-10-14] MEDS: PIPERACILLIN/TAZOBACTAM 3.375 GM in SODIUM CHLORIDE 0.9% 50ML 50 ML IV SCH ×3 (01:30→09:30)
[2020-10-14 05:30] LABS: BASOPHILS # (AUTO) 0.1 (0.0-0.1); BASOPHILS % 0.5 % (0.0-1.0); EOSINOPHILS % 0.1 % (0.0-6.0); HEMATOCRIT 31.8 % (34.2-44.1); HEMOGLOBIN 9.4 g/dL (12.0-16.0); LYMPHOCYTES # (AUTO) 1.3 (1.0-3.2); LYMPHOCYTES % 9.8 % (18.0-39.1); MEAN CORPUSCULAR HEMOGLOBIN 26.7 pg (28-32); MEAN CORPUSCULAR HGB CONC 29.6 g/dL (31-35); MEAN CORPUSCULAR VOLUME 90.3 fL (81-99); MONOCYTES % 7.6 % (4.4-11.3); NEUTROPHILS # (AUTO) 9.7 (2.1-6.9); NEUTROPHILS % 73.5 % (38.7-80.0); PLATELET COUNT 175 x10e3/uL (140-360); RED BLOOD COUNT 3.52 x10e6/uL (3.6-5.1); RED CELL DISTRIBUTION WIDTH 15.7 % (11.7-14.4)
[2020-10-14 05:43] LABS: ALBUMIN 2.3 g/dL (3.5-5.0); ALBUMIN/GLOBULIN RATIO 0.6 (0.8-2.0); CALCIUM 8.3 mg/dL (8.4-10.2); CREATININE, SERUM 0.68 mg/dL (0.57-1.11)
[2020-10-14] MEDS: LEVOTHYROXINE SODIUM 50 MCG TAB PO SCH (06:00)
[2020-10-14] MEDS: METHYLPREDNISOLONE SOD SUCC 40 MG/ML VIAL 1ML IV SCH (06:00)
[2020-10-14] MEDS: ROCURONIUM 1250MG/NS 250 250 ML IV SCH (06:00)
[2020-10-14] MEDS: ZINC SULFATE 220 MG CAP PO SCH (08:55)
[2020-10-14] MEDS: ENOXAPARIN 30 MG/0.3 ML SYR SC SCH ×2 (08:55→20:43)
[2020-10-14] MEDS: ASCORBIC ACID 500 MG TAB PO SCH ×2 (08:55→17:22)
[2020-10-14 09:59] LABS: ABG HCO3 35 mmol/L (22-26); ABG PCO2 58 mmHg (35-45); ABG PO2 77 mmHg (80-105); ABG TCO2 37
[2020-10-14] MEDS: PROPOFOL IV EMULSION 10MG/ML 100 ML IV SCH (10:32)
[2020-10-14] MEDS ORDERED: FUROSEMIDE INJ 10 MG/ML 4 ML VIAL ONE (19:26)
[2020-10-14] MEDS ORDERED: FUROSEMIDE INJ 10 MG/ML 4 ML VIAL IV ONE (19:45)
[2020-10-14] MEDS: LIDOCAINE 4% PATCH TP SCH (20:44)
[2020-10-15] VITALS (29 sets, daily range): BP systolic 65–181; BP diastolic 46–83
[2020-10-15 05:55] LABS: BASOPHILS # (AUTO) 0.1 (0.0-0.1); BASOPHILS % 0.6 % (0.0-1.0); EOSINOPHILS # (AUTO) 0.3 (0.0-0.4); HEMATOCRIT 34.2 % (34.2-44.1); HEMOGLOBIN 10.2 g/dL (12.0-16.0); LYMPHOCYTES # (AUTO) 2.1 (1.0-3.2); LYMPHOCYTES % 13.2 % (18.0-39.1); MEAN CORPUSCULAR HEMOGLOBIN 26.5 pg (28-32); MEAN CORPUSCULAR HGB CONC 29.8 g/dL (31-35); MEAN CORPUSCULAR VOLUME 88.8 fL (81-99); MONOCYTES # (AUTO) 0.7 (0.2-0.8); MONOCYTES % 4.4 % (4.4-11.3); NEUTROPHILS # (AUTO) 10.8 (2.1-6.9); NEUTROPHILS % 68.9 % (38.7-80.0); PLATELET COUNT 204 x10e3/uL (140-360); RED BLOOD COUNT 3.85 x10e6/uL (3.6-5.1); RED CELL DISTRIBUTION WIDTH 15.6 % (11.7-14.4)
[2020-10-15 06:17] LABS: ALBUMIN 2.5 g/dL (3.5-5.0); ALBUMIN/GLOBULIN RATIO 0.6 (0.8-2.0); ANION GAP 15.3 mmol/L (8-16); CALCIUM 8.3 mg/dL (8.4-10.2); CREATININE, SERUM 0.66 mg/dL (0.57-1.11); POTASSIUM 4.3 mmol/L (3.5-5.1)
[2020-10-15] MEDS: LEVOTHYROXINE SODIUM 50 MCG TAB PO SCH (06:21)
[2020-10-15] MEDS: MIDAZOLAM HCL 5MG/ML 10ML VIAL 100 ML IV PRN ×4 (06:25→22:42)
[2020-10-15] MEDS: FENTANYL 2000MCG/NS 250 250 ML IV SCH ×3 (06:25→20:58)
[2020-10-15] MEDS: PROPOFOL IV EMULSION 10MG/ML 100 ML IV SCH ×2 (07:00→22:03)
[2020-10-15] MEDS: ENOXAPARIN 30 MG/0.3 ML SYR SC SCH ×2 (08:11→22:18)
[2020-10-15 09:09] LABS: ABG HCO3 38 mmol/L (22-26); ABG PCO2 58 mmHg (35-45); ABG PH 7.42 (7.35-7.45); ABG PO2 60 mmHg (80-105); ABG TCO2 40
[2020-10-15 09:15] LABS: BAND NEUTROPHILS % (MANUAL) 2 %; EOSINOPHILS % (MANUAL) 2 % (0-7); LYMPHOCYTES % (MANUAL) 5 % (19-48); METAMYELOCYTES % (MANUAL) 5 % (0-0); MONOCYTES % (MANUAL) 6 % (3.4-9.0); NEUTROPHILS % (MANUAL) 79 % (40-74)
[2020-10-15 09:16] LABS: PLATELET ESTIMATE ADEQUATE; PLATELET MORPHOLOGY COMMENT NORMAL; POLYCHROMASIA FEW; RBC MORPHOLOGY COMMENT NORMAL
[2020-10-15] MEDS: ASCORBIC ACID 500 MG TAB PO SCH ×2 (09:21→17:08)
[2020-10-15] MEDS: ZINC SULFATE 220 MG CAP PO SCH (09:21)
[2020-10-15] MEDS: ROCURONIUM 1250MG/NS 250 250 ML IV SCH (13:23)
[2020-10-15] MEDS ORDERED: ALBUMIN 25% 25GM 100ML 0.25 GM/ML BTL IV ONE (18:45)
[2020-10-15] MEDS: NOREPINEPHRINE 8 MG/D5W 250 ML 250 ML IV SCH (18:46)
[2020-10-15] MEDS: LIDOCAINE 4% PATCH TP SCH (21:00)
[2020-10-16] VITALS (17 sets, daily range): BP systolic 95–130; BP diastolic 48–71
[2020-10-16] MEDS: FENTANYL 2000MCG/NS 250 250 ML IV SCH ×2 (03:20→09:45)
[2020-10-16] MEDS: MIDAZOLAM HCL 5MG/ML 10ML VIAL 100 ML IV PRN ×4 (03:20→19:51)
[2020-10-16 05:56] LABS: BASOPHILS # (AUTO) 0.1 (0.0-0.1); BASOPHILS % 0.5 % (0.0-1.0); EOSINOPHILS # (AUTO) 0.6 (0.0-0.4); EOSINOPHILS % 4.6 % (0.0-6.0); HEMATOCRIT 28.2 % (34.2-44.1); HEMOGLOBIN 8.4 g/dL (12.0-16.0); LYMPHOCYTES # (AUTO) 1.3 (1.0-3.2); LYMPHOCYTES % 10.4 % (18.0-39.1); MEAN CORPUSCULAR HEMOGLOBIN 26.6 pg (28-32); MEAN CORPUSCULAR HGB CONC 29.8 g/dL (31-35); MEAN CORPUSCULAR VOLUME 89.2 fL (81-99); MONOCYTES # (AUTO) 0.3 (0.2-0.8); MONOCYTES % 2.8 % (4.4-11.3); NEUTROPHILS # (AUTO) 8.7 (2.1-6.9); NEUTROPHILS % 72.3 % (38.7-80.0); PLATELET COUNT 166 x10e3/uL (140-360); RED BLOOD COUNT 3.16 x10e6/uL (3.6-5.1); RED CELL DISTRIBUTION WIDTH 15.7 % (11.7-14.4)
[2020-10-16] MEDS: LEVOTHYROXINE SODIUM 50 MCG TAB PO SCH (06:03)
[2020-10-16 06:13] LABS: ALBUMIN 2.4 g/dL (3.5-5.0); ALBUMIN/GLOBULIN RATIO 0.8 (0.8-2.0); ANION GAP 14.2 mmol/L (8-16); CALCIUM 8.1 mg/dL (8.4-10.2); CREATININE, SERUM 0.61 mg/dL (0.57-1.11); POTASSIUM 4.2 mmol/L (3.5-5.1)
[2020-10-16] MEDS: PROPOFOL IV EMULSION 10MG/ML 100 ML IV SCH ×2 (06:25→16:59)
[2020-10-16] MEDS ORDERED: ALBUMIN 25% 25GM 100ML 0.25 GM/ML BTL IV ONE (08:00)
[2020-10-16 09:00] LABS: ABG HCO3 35 mmol/L (22-26); ABG PCO2 57 mmHg (35-45); ABG PO2 92 mmHg (80-105); ABG TCO2 37
[2020-10-16] MEDS: FUROSEMIDE INJ 10 MG/ML 4 ML VIAL IV SCH ×2 (09:44→20:48)
[2020-10-16] MEDS: ASCORBIC ACID 500 MG TAB PO SCH ×2 (09:44→16:59)
[2020-10-16] MEDS: ZINC SULFATE 220 MG CAP PO SCH (09:45)
[2020-10-16] MEDS: ENOXAPARIN 30 MG/0.3 ML SYR SC SCH ×2 (10:14→20:48)
[2020-10-16] MEDS: ROCURONIUM 1250MG/NS 250 250 ML IV SCH (15:38)
[2020-10-16] MEDS: NOREPINEPHRINE 8 MG/D5W 250 ML 250 ML IV SCH (18:45)
[2020-10-16] MEDS: LIDOCAINE 4% PATCH TP SCH (19:45)
[2020-10-17] VITALS (25 sets, daily range): BP systolic 93–137; BP diastolic 51–62
[2020-10-17] MEDS: MIDAZOLAM HCL 5MG/ML 10ML VIAL 100 ML IV PRN ×5 (01:41→23:55)
[2020-10-17] MEDS: PROPOFOL IV EMULSION 10MG/ML 100 ML IV SCH ×4 (01:50→17:40)
[2020-10-17 04:48] LABS: BASOPHILS # (AUTO) 0.1 (0.0-0.1); BASOPHILS % 0.3 % (0.0-1.0); EOSINOPHILS # (AUTO) 0.7 (0.0-0.4); EOSINOPHILS % 5.1 % (0.0-6.0); HEMATOCRIT 30.5 % (34.2-44.1); LYMPHOCYTES # (AUTO) 1.1 (1.0-3.2); LYMPHOCYTES % 7.5 % (18.0-39.1); MEAN CORPUSCULAR HEMOGLOBIN 26.5 pg (28-32); MEAN CORPUSCULAR HGB CONC 29.5 g/dL (31-35); MEAN CORPUSCULAR VOLUME 89.7 fL (81-99); MONOCYTES # (AUTO) 0.4 (0.2-0.8); MONOCYTES % 2.9 % (4.4-11.3); NEUTROPHILS # (AUTO) 11.2 (2.1-6.9); NEUTROPHILS % 76.7 % (38.7-80.0); PLATELET COUNT 186 x10e3/uL (140-360); RED CELL DISTRIBUTION WIDTH 15.6 % (11.7-14.4)
[2020-10-17 05:13] LABS: ANION GAP 14.6 mmol/L (8-16); CREATININE, SERUM 0.65 mg/dL (0.57-1.11); POTASSIUM 4.6 mmol/L (3.5-5.1)
[2020-10-17 05:14] LABS: ALBUMIN 2.7 g/dL (3.5-5.0); ALBUMIN/GLOBULIN RATIO 0.8 (0.8-2.0); CALCIUM 8.7 mg/dL (8.4-10.2)
[2020-10-17] MEDS: LEVOTHYROXINE SODIUM 50 MCG TAB PO SCH (05:37)
[2020-10-17] MEDS: FENTANYL 2000MCG/NS 250 250 ML IV SCH ×3 (06:32→17:16)
[2020-10-17 07:14] LABS: ABG HCO3 43 mmol/L (22-26); ABG PCO2 75 mmHg (35-45); ABG PH 7.37 (7.35-7.45); ABG PO2 76 mmHg (80-105)
[2020-10-17 07:15] LABS: ABG TCO2 45
[2020-10-17] MEDS: ZINC SULFATE 220 MG CAP PO SCH (09:29)
[2020-10-17] MEDS: ASCORBIC ACID 500 MG TAB PO SCH ×2 (09:29→16:38)
[2020-10-17] MEDS: ENOXAPARIN 30 MG/0.3 ML SYR SC SCH ×2 (09:29→21:18)
[2020-10-17] MEDS ORDERED: ALBUMIN 25% 25GM 100ML 0.25 GM/ML BTL IV SCH (11:00)
[2020-10-17] MEDS: FUROSEMIDE INJ 10 MG/ML 4 ML VIAL IV SCH ×2 (11:43→21:18)
[2020-10-17] MEDS: ALBUMIN 25% 25GM 100ML 100 ML IV SCH ×2 (13:14→19:40)
[2020-10-17] MEDS: NOREPINEPHRINE 8 MG/D5W 250 ML 250 ML IV SCH (16:38)
[2020-10-17] MEDS: ROCURONIUM 1250MG/NS 250 250 ML IV SCH (16:38)
[2020-10-17] MEDS: LIDOCAINE 4% PATCH TP SCH (21:00)
[2020-10-18] VITALS (26 sets, daily range): BP systolic 96–139; BP diastolic 47–59
[2020-10-18] MEDS: PROPOFOL IV EMULSION 10MG/ML 100 ML IV SCH ×4 (03:06→21:30)
[2020-10-18] MEDS: ALBUMIN 25% 25GM 100ML 100 ML IV SCH (03:06)
[2020-10-18] MEDS: ACETAMINOPHEN 325 MG TAB PO PRN (03:07)
[2020-10-18] MEDS: FENTANYL 2000MCG/NS 250 250 ML IV SCH ×4 (03:11→16:15)
[2020-10-18] MEDS: MIDAZOLAM HCL 5MG/ML 10ML VIAL 100 ML IV PRN ×4 (05:05→21:30)
[2020-10-18 05:24] LABS: BASOPHILS # (AUTO) 0.1 (0.0-0.1); BASOPHILS % 0.4 % (0.0-1.0); EOSINOPHILS # (AUTO) 0.8 (0.0-0.4); EOSINOPHILS % 4.9 % (0.0-6.0); HEMATOCRIT 28.1 % (34.2-44.1); HEMOGLOBIN 8.3 g/dL (12.0-16.0); LYMPHOCYTES % 5.9 % (18.0-39.1); MEAN CORPUSCULAR HEMOGLOBIN 26.7 pg (28-32); MEAN CORPUSCULAR HGB CONC 29.5 g/dL (31-35); MEAN CORPUSCULAR VOLUME 90.4 fL (81-99); MONOCYTES # (AUTO) 0.7 (0.2-0.8); MONOCYTES % 4.2 % (4.4-11.3); NEUTROPHILS # (AUTO) 12.7 (2.1-6.9); NEUTROPHILS % 78.4 % (38.7-80.0); PLATELET COUNT 191 x10e3/uL (140-360); RED BLOOD COUNT 3.11 x10e6/uL (3.6-5.1); RED CELL DISTRIBUTION WIDTH 15.5 % (11.7-14.4)
[2020-10-18] MEDS: LEVOTHYROXINE SODIUM 50 MCG TAB PO SCH (05:30)
[2020-10-18 05:48] LABS: ALBUMIN 3.7 g/dL (3.5-5.0); ALBUMIN/GLOBULIN RATIO 1.2 (0.8-2.0); ANION GAP 15.3 mmol/L (8-16); CALCIUM 8.8 mg/dL (8.4-10.2); CREATININE, SERUM 0.68 mg/dL (0.57-1.11); POTASSIUM 4.3 mmol/L (3.5-5.1)
[2020-10-18 07:55] LABS: ABG HCO3 43 mmol/L (22-26); ABG PCO2 76 mmHg (35-45); ABG PH 7.35 (7.35-7.45); ABG PO2 56 mmHg (80-105); ABG TCO2 45
[2020-10-18] MEDS ORDERED: Vancomycin IV 1 GM in SODIUM CHLORIDE 0.9% 250ML 250 ML IV ONE (08:30)
[2020-10-18] MEDS: ZINC SULFATE 220 MG CAP PO SCH (08:58)
[2020-10-18] MEDS: ENOXAPARIN 30 MG/0.3 ML SYR SC SCH (08:58)
[2020-10-18] MEDS: ASCORBIC ACID 500 MG TAB PO SCH ×2 (08:58→17:01)
[2020-10-18] MEDS: FUROSEMIDE INJ 10 MG/ML 4 ML VIAL IV SCH ×2 (09:00→21:30)
[2020-10-18 10:19] LABS: LYMPHOCYTES % (MANUAL) 5 % (19-48)
[2020-10-18 10:21] LABS: ANISOCYTOSIS SLIGHT; BAND NEUTROPHILS % (MANUAL) 2 %; EOSINOPHILS % (MANUAL) 7 % (0-7); HYPOCHROMASIA SLIGHT; METAMYELOCYTES % (MANUAL) 2 % (0-0); MONOCYTES % (MANUAL) 4 % (3.4-9.0); NEUTROPHILS % (MANUAL) 77 % (40-74); PLATELET ESTIMATE ADEQUATE; PLATELET MORPHOLOGY COMMENT NORMAL; PROMYELOCYTES % (MANUAL) 1 % (0-0); RBC MORPHOLOGY COMMENT NORMAL
[2020-10-18] MEDS: MEROPENEM 1 GM in SODIUM CHLORIDE 0.9% 100 ML IV SCH ×2 (10:33→17:01)
[2020-10-18] MEDS: LIDOCAINE 4% PATCH TP SCH (21:00)
[2020-10-18] MEDS: ENOXAPARIN INJ 80 MG/0.8 ML SYR SC SCH (21:30)
[2020-10-18] MEDS: ROCURONIUM 1250MG/NS 250 250 ML IV SCH (21:30)
[2020-10-19] VITALS (18 sets, daily range): BP systolic 81–139; BP diastolic 45–69
[2020-10-19] MEDS: ACETAMINOPHEN 325 MG TAB PO PRN (00:27)
[2020-10-19] MEDS ORDERED: ACETAMINOPHEN 1000 MG/100 ML IV STA ×2 (01:16→12:17)
[2020-10-19] MEDS ORDERED: NOREPINEPHRINE 8 MG/D5W 250 ML 250 ML ONE (01:26)
[2020-10-19] MEDS: NOREPINEPHRINE 8 MG/D5W 250 ML 250 ML IV SCH ×2 (01:30→22:44)
[2020-10-19] MEDS: MEROPENEM 1 GM in SODIUM CHLORIDE 0.9% 100 ML IV SCH ×3 (02:18→17:29)
[2020-10-19] MEDS: MIDAZOLAM HCL 5MG/ML 10ML VIAL 100 ML IV PRN ×4 (02:33→22:45)
[2020-10-19] MEDS: PROPOFOL IV EMULSION 10MG/ML 100 ML IV SCH ×4 (03:08→22:45)
[2020-10-19] MEDS: ALBUMIN 25% 25GM 100ML 0.25 GM/ML BTL IV SCH ×3 (03:35→12:36)
[2020-10-19 05:04] LABS: BASOPHILS # (AUTO) 0.1 (0.0-0.1); BASOPHILS % 0.4 % (0.0-1.0); EOSINOPHILS # (AUTO) 1.1 (0.0-0.4); EOSINOPHILS % 6.3 % (0.0-6.0); HEMATOCRIT 29.7 % (34.2-44.1); HEMOGLOBIN 8.6 g/dL (12.0-16.0); LYMPHOCYTES # (AUTO) 1.3 (1.0-3.2); LYMPHOCYTES % 7.6 % (18.0-39.1); MEAN CORPUSCULAR HEMOGLOBIN 26.5 pg (28-32); MEAN CORPUSCULAR VOLUME 91.7 fL (81-99); MONOCYTES # (AUTO) 0.9 (0.2-0.8); MONOCYTES % 5.2 % (4.4-11.3); NEUTROPHILS # (AUTO) 12.6 (2.1-6.9); NEUTROPHILS % 75.6 % (38.7-80.0); PLATELET COUNT 216 x10e3/uL (140-360); RED BLOOD COUNT 3.24 x10e6/uL (3.6-5.1); RED CELL DISTRIBUTION WIDTH 15.1 % (11.7-14.4)
[2020-10-19 05:28] LABS: ALBUMIN 3.4 g/dL (3.5-5.0); ANION GAP 13.6 mmol/L (8-16); CREATININE, SERUM 0.67 mg/dL (0.57-1.11); POTASSIUM 3.6 mmol/L (3.5-5.1)
[2020-10-19] MEDS: FENTANYL 2000MCG/NS 250 250 ML IV SCH ×3 (06:32→20:59)
[2020-10-19] MEDS: LEVOTHYROXINE SODIUM 50 MCG TAB PO SCH (06:32)
[2020-10-19] MEDS: ENOXAPARIN INJ 80 MG/0.8 ML SYR SC SCH ×2 (08:09→20:47)
[2020-10-19 09:07] LABS: ABG PH 7.28 (7.35-7.45)
[2020-10-19 09:08] LABS: ABG HCO3 42 mmol/L (22-26); ABG PCO2 89 mmHg (35-45); ABG PO2 61 mmHg (80-105); ABG TCO2 45
[2020-10-19] MEDS: ZINC SULFATE 220 MG CAP PO SCH (10:13)
[2020-10-19] MEDS: FUROSEMIDE INJ 10 MG/ML 4 ML VIAL IV SCH (10:13)
[2020-10-19] MEDS: ASCORBIC ACID 500 MG TAB PO SCH ×2 (10:13→17:29)
[2020-10-19] MEDS: ROCURONIUM 1250MG/NS 250 250 ML IV SCH (17:29)
[2020-10-19] MEDS: LIDOCAINE 4% PATCH TP SCH (20:47)
[2020-10-20] VITALS (17 sets, daily range): BP systolic 97–129; BP diastolic 41–64
[2020-10-20] MEDS: MEROPENEM 1 GM in SODIUM CHLORIDE 0.9% 100 ML IV SCH ×3 (02:30→18:07)
[2020-10-20] MEDS: PROPOFOL IV EMULSION 10MG/ML 100 ML IV SCH ×3 (04:30→18:14)
[2020-10-20 04:48] LABS: BASOPHILS # (AUTO) 0.1 (0.0-0.1); BASOPHILS % 0.5 % (0.0-1.0); EOSINOPHILS % 6.3 % (0.0-6.0); LYMPHOCYTES # (AUTO) 1.4 (1.0-3.2); LYMPHOCYTES % 8.4 % (18.0-39.1); MEAN CORPUSCULAR HEMOGLOBIN 26.7 pg (28-32); MEAN CORPUSCULAR HGB CONC 28.6 g/dL (31-35); MEAN CORPUSCULAR VOLUME 93.3 fL (81-99); MONOCYTES # (AUTO) 1.1 (0.2-0.8); MONOCYTES % 7.1 % (4.4-11.3); NEUTROPHILS # (AUTO) 11.6 (2.1-6.9); NEUTROPHILS % 71.9 % (38.7-80.0); PLATELET COUNT 222 x10e3/uL (140-360); RED CELL DISTRIBUTION WIDTH 14.8 % (11.7-14.4)
[2020-10-20 05:23] LABS: ALBUMIN 3.3 g/dL (3.5-5.0); ALBUMIN/GLOBULIN RATIO 0.9 (0.8-2.0); ANION GAP 13.9 mmol/L (8-16); CALCIUM 9.1 mg/dL (8.4-10.2); CREATININE, SERUM 0.61 mg/dL (0.57-1.11); POTASSIUM 3.9 mmol/L (3.5-5.1)
[2020-10-20] MEDS: LEVOTHYROXINE SODIUM 50 MCG TAB PO SCH (05:39)
[2020-10-20 08:13] LABS: ABG HCO3 46 mmol/L (22-26); ABG PCO2 92 mmHg (35-45); ABG PO2 74 mmHg (80-105); ABG TCO2 48
[2020-10-20] MEDS: MIDAZOLAM HCL 5MG/ML 10ML VIAL 100 ML IV PRN ×3 (08:31→18:34)
[2020-10-20 08:46] LABS: EOSINOPHILS % (MANUAL) 3 % (0-7); HYPOCHROMASIA SLIGHT; LYMPHOCYTES % (MANUAL) 4 % (19-48); METAMYELOCYTES % (MANUAL) 2 % (0-0); MONOCYTES % (MANUAL) 3 % (3.4-9.0); MYELOCYTES % (MANUAL) 4 % (0-0); NEUTROPHILS % (MANUAL) 83 % (40-74); NUCLEATED RED BLOOD CELLS 1; PLATELET ESTIMATE ADEQUATE; PLATELET MORPHOLOGY COMMENT NORMAL; POLYCHROMASIA FEW; PROMYELOCYTES % (MANUAL) 1 % (0-0); RBC MORPHOLOGY COMMENT NORMAL
[2020-10-20 08:47] LABS: ANISOCYTOSIS SLIGHT
[2020-10-20] MEDS: ASCORBIC ACID 500 MG TAB PO SCH ×2 (08:49→16:20)
[2020-10-20] MEDS: ZINC SULFATE 220 MG CAP PO SCH (08:49)
[2020-10-20] MEDS: ENOXAPARIN INJ 80 MG/0.8 ML SYR SC SCH ×2 (08:49→21:43)
[2020-10-20] MEDS: FENTANYL 2000MCG/NS 250 250 ML IV SCH ×2 (10:32→16:20)
[2020-10-20] MEDS: FUROSEMIDE INJ 10 MG/ML 4 ML VIAL IV SCH (16:04)
[2020-10-20] MEDS: ROCURONIUM 1250MG/NS 250 250 ML IV SCH (16:04)
[2020-10-20] MEDS: LIDOCAINE 4% PATCH TP SCH (21:00)
[2020-10-20] MEDS: METOCLOPRAMIDE HCL 10 MG/2ML VIAL IV SCH (21:43)
[2020-10-21] VITALS (24 sets, daily range): BP systolic 93–135; BP diastolic 44–57
[2020-10-21] MEDS: MIDAZOLAM HCL 5MG/ML 10ML VIAL 100 ML IV PRN ×4 (01:25→22:09)
[2020-10-21] MEDS: PROPOFOL IV EMULSION 10MG/ML 100 ML IV SCH ×3 (01:25→13:49)
[2020-10-21] MEDS: ROCURONIUM 1250MG/NS 250 250 ML IV SCH (01:25)
[2020-10-21] MEDS: FENTANYL 2000MCG/NS 250 250 ML IV SCH ×2 (01:25→14:10)
[2020-10-21] MEDS: NOREPINEPHRINE 8 MG/D5W 250 ML 250 ML IV SCH ×2 (01:30→14:06)
[2020-10-21] MEDS: MEROPENEM 1 GM in SODIUM CHLORIDE 0.9% 100 ML IV SCH ×3 (02:53→17:01)
[2020-10-21 04:12] LABS: BASOPHILS # (AUTO) 0.1 (0.0-0.1); BASOPHILS % 0.6 % (0.0-1.0); EOSINOPHILS # (AUTO) 0.8 (0.0-0.4); EOSINOPHILS % 4.4 % (0.0-6.0); HEMATOCRIT 28.3 % (34.2-44.1); HEMOGLOBIN 8.2 g/dL (12.0-16.0); LYMPHOCYTES # (AUTO) 0.8 (1.0-3.2); LYMPHOCYTES % 4.6 % (18.0-39.1); MEAN CORPUSCULAR HEMOGLOBIN 26.5 pg (28-32); MEAN CORPUSCULAR VOLUME 91.6 fL (81-99); MONOCYTES # (AUTO) 1.4 (0.2-0.8); MONOCYTES % 8.3 % (4.4-11.3); NEUTROPHILS # (AUTO) 13.4 (2.1-6.9); NEUTROPHILS % 76.8 % (38.7-80.0); PLATELET COUNT 238 x10e3/uL (140-360); RED BLOOD COUNT 3.09 x10e6/uL (3.6-5.1); RED CELL DISTRIBUTION WIDTH 14.8 % (11.7-14.4)
[2020-10-21 04:34] LABS: ALBUMIN 2.9 g/dL (3.5-5.0); ALBUMIN/GLOBULIN RATIO 0.8 (0.8-2.0); ANION GAP 16.7 mmol/L (8-16); CALCIUM 9.1 mg/dL (8.4-10.2); CREATININE, SERUM 0.62 mg/dL (0.57-1.11); POTASSIUM 3.7 mmol/L (3.5-5.1)
[2020-10-21] MEDS: FUROSEMIDE INJ 10 MG/ML 4 ML VIAL IV SCH (04:50)
[2020-10-21] MEDS: METOCLOPRAMIDE HCL 10 MG/2ML VIAL IV SCH ×3 (06:44→21:38)
[2020-10-21] MEDS: LEVOTHYROXINE SODIUM 50 MCG TAB PO SCH (06:44)
[2020-10-21] MEDS: ENOXAPARIN INJ 80 MG/0.8 ML SYR SC SCH ×2 (09:19→21:37)
[2020-10-21] MEDS: ZINC SULFATE 220 MG CAP PO SCH (09:19)
[2020-10-21] MEDS: ASCORBIC ACID 500 MG TAB PO SCH ×2 (09:19→16:34)
[2020-10-21 09:32] LABS: ABG HCO3 48 mmol/L (22-26); ABG PCO2 87 mmHg (35-45); ABG PH 7.35 (7.35-7.45); ABG PO2 89 mmHg (80-105); ABG TCO2 > 50
[2020-10-21] MEDS: FUROSEMIDE INJ 100 MG in SODIUM CHLORIDE 0.9% 100 ML 90 ML IV SCH (09:32)
[2020-10-21] MEDS: ACETAZOLAMIDE SODIUM 500 MG/VIAL IV SCH ×2 (09:32→21:37)
[2020-10-21] MEDS: LIDOCAINE 4% PATCH TP SCH (21:00)
[2020-10-21] MEDS ORDERED: HEPARIN SOD/SOD CHLORIDE 1,000 ML ONE (22:10)
[2020-10-22] VITALS (26 sets, daily range): BP systolic 93–144; BP diastolic 42–83
[2020-10-22] MEDS: NOREPINEPHRINE 8 MG/D5W 250 ML 250 ML IV SCH (01:20)
[2020-10-22] MEDS: MEROPENEM 1 GM in SODIUM CHLORIDE 0.9% 100 ML IV SCH ×3 (01:41→16:54)
[2020-10-22] MEDS: MIDAZOLAM HCL 5MG/ML 10ML VIAL 100 ML IV PRN ×5 (03:03→22:08)
[2020-10-22] MEDS: PROPOFOL IV EMULSION 10MG/ML 100 ML IV SCH ×4 (03:19→21:50)
[2020-10-22 05:00] LABS: BASOPHILS # (AUTO) 0.1 (0.0-0.1); BASOPHILS % 0.6 % (0.0-1.0); EOSINOPHILS # (AUTO) 0.9 (0.0-0.4); EOSINOPHILS % 5.9 % (0.0-6.0); HEMATOCRIT 28.9 % (34.2-44.1); HEMOGLOBIN 8.3 g/dL (12.0-16.0); LYMPHOCYTES # (AUTO) 1.1 (1.0-3.2); LYMPHOCYTES % 6.9 % (18.0-39.1); MEAN CORPUSCULAR HEMOGLOBIN 26.9 pg (28-32); MEAN CORPUSCULAR HGB CONC 28.7 g/dL (31-35); MEAN CORPUSCULAR VOLUME 93.5 fL (81-99); MONOCYTES # (AUTO) 1.5 (0.2-0.8); MONOCYTES % 9.6 % (4.4-11.3); NEUTROPHILS # (AUTO) 11.1 (2.1-6.9); NEUTROPHILS % 70.5 % (38.7-80.0); PLATELET COUNT 251 x10e3/uL (140-360); RED BLOOD COUNT 3.09 x10e6/uL (3.6-5.1); RED CELL DISTRIBUTION WIDTH 15.4 % (11.7-14.4)
[2020-10-22] MEDS: FUROSEMIDE INJ 100 MG in SODIUM CHLORIDE 0.9% 100 ML 90 ML IV SCH (05:00)
[2020-10-22 05:25] LABS: ALBUMIN 2.6 g/dL (3.5-5.0); ALBUMIN/GLOBULIN RATIO 0.6 (0.8-2.0); ANION GAP 13.9 mmol/L (8-16); CALCIUM 8.8 mg/dL (8.4-10.2); CREATININE, SERUM 0.57 mg/dL (0.57-1.11)
[2020-10-22 05:43] LABS: POTASSIUM 2.9 mmol/L (3.5-5.1)
[2020-10-22] MEDS: METOCLOPRAMIDE HCL 10 MG/2ML VIAL IV SCH ×3 (06:07→20:40)
[2020-10-22] MEDS: LEVOTHYROXINE SODIUM 50 MCG TAB PO SCH (06:08)
[2020-10-22] MEDS: ROCURONIUM 1250MG/NS 250 250 ML IV SCH (07:41)
[2020-10-22] MEDS: POTASSIUM CHLORIDE 20MEQ/100ML 100 ML IV SCH ×4 (07:42→11:54)
[2020-10-22] MEDS: ENOXAPARIN INJ 80 MG/0.8 ML SYR SC SCH ×2 (08:00→20:40)
[2020-10-22] MEDS: ZINC SULFATE 220 MG CAP PO SCH (08:00)
[2020-10-22] MEDS: ASCORBIC ACID 500 MG TAB PO SCH ×2 (08:00→16:54)
[2020-10-22 08:37] LABS: ABG HCO3 47 mmol/L (22-26); ABG PCO2 84 mmHg (35-45); ABG PH 7.36 (7.35-7.45); ABG PO2 87 mmHg (80-105); ABG TCO2 49
[2020-10-22] MEDS: FENTANYL 2000MCG/NS 250 250 ML IV SCH (16:54)
[2020-10-22] MEDS: LIDOCAINE 4% PATCH TP SCH (20:40)
[2020-10-23] VITALS (24 sets, daily range): BP systolic 95–134; BP diastolic 45–77
[2020-10-23] MEDS: PROPOFOL IV EMULSION 10MG/ML 100 ML IV SCH ×6 (01:58→23:24)
[2020-10-23] MEDS: FENTANYL 2000MCG/NS 250 250 ML IV SCH ×4 (02:17→23:19)
[2020-10-23] MEDS: MEROPENEM 1 GM in SODIUM CHLORIDE 0.9% 100 ML IV SCH ×2 (02:26→08:53)
[2020-10-23] MEDS: MIDAZOLAM HCL 5MG/ML 10ML VIAL 100 ML IV PRN ×6 (02:42→19:14)
[2020-10-23 05:39] LABS: BASOPHILS # (AUTO) 0.1 (0.0-0.1); BASOPHILS % 0.7 % (0.0-1.0); EOSINOPHILS # (AUTO) 0.6 (0.0-0.4); EOSINOPHILS % 3.7 % (0.0-6.0); HEMATOCRIT 28.5 % (34.2-44.1); LYMPHOCYTES # (AUTO) 1.3 (1.0-3.2); LYMPHOCYTES % 8.4 % (18.0-39.1); MEAN CORPUSCULAR HEMOGLOBIN 26.4 pg (28-32); MEAN CORPUSCULAR HGB CONC 28.1 g/dL (31-35); MEAN CORPUSCULAR VOLUME 94.1 fL (81-99); MONOCYTES # (AUTO) 1.5 (0.2-0.8); MONOCYTES % 9.3 % (4.4-11.3); NEUTROPHILS # (AUTO) 11.1 (2.1-6.9); NEUTROPHILS % 70.4 % (38.7-80.0); PLATELET COUNT 230 x10e3/uL (140-360); RED BLOOD COUNT 3.03 x10e6/uL (3.6-5.1); RED CELL DISTRIBUTION WIDTH 15.7 % (11.7-14.4)
[2020-10-23] MEDS: LEVOTHYROXINE SODIUM 50 MCG TAB PO SCH (06:10)
[2020-10-23] MEDS: METOCLOPRAMIDE HCL 10 MG/2ML VIAL IV SCH ×3 (06:10→21:48)
[2020-10-23 06:11] LABS: ALBUMIN 2.5 g/dL (3.5-5.0); ALBUMIN/GLOBULIN RATIO 0.6 (0.8-2.0); CALCIUM 9.1 mg/dL (8.4-10.2); CREATININE, SERUM 0.54 mg/dL (0.57-1.11)
[2020-10-23] MEDS: ZINC SULFATE 220 MG CAP PO SCH (08:50)
[2020-10-23] MEDS: ENOXAPARIN INJ 80 MG/0.8 ML SYR SC SCH ×2 (08:50→21:48)
[2020-10-23] MEDS: ASCORBIC ACID 500 MG TAB PO SCH ×2 (08:50→18:12)
[2020-10-23] MEDS: ALBUMIN 25% 25GM 100ML 0.25 GM/ML BTL IV SCH ×3 (08:55→21:48)
[2020-10-23] MEDS: ROCURONIUM 1250MG/NS 250 250 ML IV SCH (09:00)
[2020-10-23 09:44] LABS: ABG PCO2 118 mmHg (35-45); ABG PO2 80 mmHg (80-105)
[2020-10-23 09:45] LABS: ABG HCO3 46 mmol/L (22-26); ABG TCO2 49
[2020-10-23] MEDS: NOREPINEPHRINE 8 MG/D5W 250 ML 250 ML IV SCH (14:00)
[2020-10-23 18:18] LABS: ABG HCO3 44 mmol/L (22-26); ABG PCO2 88 mmHg (35-45); ABG PH 7.31 (7.35-7.45); ABG PO2 113 mmHg (80-105); ABG TCO2 47
[2020-10-23] MEDS: LIDOCAINE 4% PATCH TP SCH (21:00)
[2020-10-23] MEDS: FUROSEMIDE INJ 100 MG in SODIUM CHLORIDE 0.9% 100 ML 90 ML IV SCH (21:00)
[2020-10-23] MEDS: ACETAMINOPHEN 325 MG TAB PO PRN (23:21)
[2020-10-24] VITALS (29 sets, daily range): BP systolic 106–141; BP diastolic 49–78
[2020-10-24] MEDS: MIDAZOLAM HCL 5MG/ML 10ML VIAL 100 ML IV PRN ×3 (00:18→22:28)
[2020-10-24] MEDS: PROPOFOL IV EMULSION 10MG/ML 100 ML IV SCH ×2 (04:49→11:08)
[2020-10-24] MEDS: METOCLOPRAMIDE HCL 10 MG/2ML VIAL IV SCH ×3 (05:35→21:56)
[2020-10-24] MEDS: LEVOTHYROXINE SODIUM 50 MCG TAB PO SCH (05:35)
[2020-10-24 05:42] LABS: BASOPHILS # (AUTO) 0.1 (0.0-0.1); BASOPHILS % 0.5 % (0.0-1.0); EOSINOPHILS # (AUTO) 0.7 (0.0-0.4); EOSINOPHILS % 5.5 % (0.0-6.0); HEMATOCRIT 24.2 % (34.2-44.1); LYMPHOCYTES # (AUTO) 1.5 (1.0-3.2); LYMPHOCYTES % 12.7 % (18.0-39.1); MEAN CORPUSCULAR HEMOGLOBIN 27.1 pg (28-32); MEAN CORPUSCULAR HGB CONC 28.5 g/dL (31-35); MEAN CORPUSCULAR VOLUME 94.9 fL (81-99); MONOCYTES # (AUTO) 1.1 (0.2-0.8); MONOCYTES % 9.1 % (4.4-11.3); NEUTROPHILS # (AUTO) 7.7 (2.1-6.9); NEUTROPHILS % 63.4 % (38.7-80.0); PLATELET COUNT 181 x10e3/uL (140-360); RED BLOOD COUNT 2.55 x10e6/uL (3.6-5.1); RED CELL DISTRIBUTION WIDTH 15.6 % (11.7-14.4)
[2020-10-24] MEDS: FENTANYL 2000MCG/NS 250 250 ML IV SCH ×2 (06:21→19:25)
[2020-10-24 06:26] LABS: HEMOGLOBIN 6.9 g/dL (12.0-16.0)
[2020-10-24] MEDS ORDERED: SODIUM CHLORIDE 0.9% 250ML 250 ML IV ONE (06:30)
[2020-10-24 06:43] LABS: ALBUMIN 3.4 g/dL (3.5-5.0); ALBUMIN/GLOBULIN RATIO 1.1 (0.8-2.0); CALCIUM 9.3 mg/dL (8.4-10.2); CREATININE, SERUM 0.51 mg/dL (0.57-1.11)
[2020-10-24] MEDS: ASCORBIC ACID 500 MG TAB PO SCH ×2 (09:02→17:24)
[2020-10-24] MEDS: ZINC SULFATE 220 MG CAP PO SCH (09:02)
[2020-10-24] MEDS: ENOXAPARIN INJ 80 MG/0.8 ML SYR SC SCH ×2 (09:02→21:56)
[2020-10-24 09:09] LABS: EOSINOPHILS % (MANUAL) 5 % (0-7); LYMPHOCYTES % (MANUAL) 17 % (19-48); MONOCYTES % (MANUAL) 7 % (3.4-9.0); MYELOCYTES % (MANUAL) 5 % (0-0); NEUTROPHILS % (MANUAL) 66 % (40-74); NUCLEATED RED BLOOD CELLS 4; PLATELET ESTIMATE ADEQUATE; RBC MORPHOLOGY COMMENT ABNORMAL
[2020-10-24 09:10] LABS: HYPOCHROMASIA SLIGHT; PLATELET MORPHOLOGY COMMENT FEW GIANT
[2020-10-24 09:11] LABS: POLYCHROMASIA FEW
[2020-10-24 09:28] LABS: ABG PH 7.27 (7.35-7.45)
[2020-10-24 09:29] LABS: ABG PCO2 98 mmHg (35-45)
[2020-10-24 09:30] LABS: ABG HCO3 45 mmol/L (22-26); ABG PO2 101 mmHg (80-105); ABG TCO2 48
[2020-10-24] MEDS ORDERED: SODIUM CHLORIDE 0.9% 250ML 250 ML ONE (10:15)
[2020-10-24 16:32] LABS: ABG PH 7.28 (7.35-7.45)
[2020-10-24 16:33] LABS: ABG HCO3 42 mmol/L (22-26); ABG PCO2 90 mmHg (35-45); ABG PO2 60 mmHg (80-105); ABG TCO2 45
[2020-10-24] MEDS: LIDOCAINE 4% PATCH TP SCH (22:20)
[2020-10-25] VITALS (25 sets, daily range): BP systolic 94–129; BP diastolic 50–71
[2020-10-25] MEDS: NOREPINEPHRINE 8 MG/D5W 250 ML 250 ML IV SCH ×2 (01:52→02:34)
[2020-10-25] MEDS: ROCURONIUM 1250MG/NS 250 250 ML IV SCH ×2 (01:58→23:19)
[2020-10-25] MEDS: MIDAZOLAM HCL 5MG/ML 10ML VIAL 100 ML IV PRN ×3 (02:36→23:29)
[2020-10-25] MEDS: FENTANYL 2000MCG/NS 250 250 ML IV SCH ×4 (03:20→23:50)
[2020-10-25 05:20] LABS: BASOPHILS # (AUTO) 0.1 (0.0-0.1); BASOPHILS % 0.7 % (0.0-1.0); EOSINOPHILS # (AUTO) 0.8 (0.0-0.4); EOSINOPHILS % 5.3 % (0.0-6.0); HEMATOCRIT 28.8 % (34.2-44.1); HEMOGLOBIN 8.3 g/dL (12.0-16.0); LYMPHOCYTES # (AUTO) 1.5 (1.0-3.2); LYMPHOCYTES % 10.4 % (18.0-39.1); MEAN CORPUSCULAR HEMOGLOBIN 26.9 pg (28-32); MEAN CORPUSCULAR HGB CONC 28.8 g/dL (31-35); MEAN CORPUSCULAR VOLUME 93.5 fL (81-99); NEUTROPHILS # (AUTO) 9.7 (2.1-6.9); NEUTROPHILS % 66.9 % (38.7-80.0); PLATELET COUNT 153 x10e3/uL (140-360); RED BLOOD COUNT 3.08 x10e6/uL (3.6-5.1); RED CELL DISTRIBUTION WIDTH 15.9 % (11.7-14.4)
[2020-10-25 05:37] LABS: ALBUMIN 3.4 g/dL (3.5-5.0); ANION GAP 13.6 mmol/L (8-16); CALCIUM 9.3 mg/dL (8.4-10.2); CREATININE, SERUM 0.52 mg/dL (0.57-1.11); POTASSIUM 4.6 mmol/L (3.5-5.1)
[2020-10-25] MEDS: PROPOFOL IV EMULSION 10MG/ML 100 ML IV SCH ×2 (05:37→18:07)
[2020-10-25] MEDS: LEVOTHYROXINE SODIUM 50 MCG TAB PO SCH (06:10)
[2020-10-25] MEDS: METOCLOPRAMIDE HCL 10 MG/2ML VIAL IV SCH ×3 (06:10→21:20)
[2020-10-25] MEDS: ENOXAPARIN INJ 80 MG/0.8 ML SYR SC SCH ×2 (08:46→21:20)
[2020-10-25] MEDS: ZINC SULFATE 220 MG CAP PO SCH (08:46)
[2020-10-25] MEDS: ASCORBIC ACID 500 MG TAB PO SCH ×2 (08:46→17:14)
[2020-10-25] MEDS: FUROSEMIDE INJ 100 MG in SODIUM CHLORIDE 0.9% 100 ML 90 ML IV SCH ×2 (10:52→21:15)
[2020-10-25 12:00] LABS: ABG HCO3 41 mmol/L (22-26); ABG PCO2 99 mmHg (35-45); ABG PH 7.23 (7.35-7.45); ABG PO2 58 mmHg (80-105); ABG TCO2 44
[2020-10-25] MEDS: LIDOCAINE 4% PATCH TP SCH (21:00)
[2020-10-26] VITALS (27 sets, daily range): BP systolic 90–123; BP diastolic 48–68
[2020-10-26] MEDS: PROPOFOL IV EMULSION 10MG/ML 100 ML IV SCH ×2 (02:07→05:28)
[2020-10-26] MEDS: MIDAZOLAM HCL 5MG/ML 10ML VIAL 100 ML IV PRN ×4 (04:29→19:45)
[2020-10-26] MEDS: LEVOTHYROXINE SODIUM 50 MCG TAB PO SCH (05:27)
[2020-10-26] MEDS: METOCLOPRAMIDE HCL 10 MG/2ML VIAL IV SCH ×3 (05:27→21:26)
[2020-10-26 06:23] LABS: BASOPHILS # (AUTO) 0.1 (0.0-0.1); BASOPHILS % 0.3 % (0.0-1.0); EOSINOPHILS # (AUTO) 0.5 (0.0-0.4); EOSINOPHILS % 3.4 % (0.0-6.0); HEMOGLOBIN 8.1 g/dL (12.0-16.0); LYMPHOCYTES # (AUTO) 0.9 (1.0-3.2); MEAN CORPUSCULAR HEMOGLOBIN 26.6 pg (28-32); MEAN CORPUSCULAR HGB CONC 27.9 g/dL (31-35); MEAN CORPUSCULAR VOLUME 95.4 fL (81-99); MONOCYTES # (AUTO) 0.8 (0.2-0.8); MONOCYTES % 5.2 % (4.4-11.3); NEUTROPHILS # (AUTO) 11.7 (2.1-6.9); NEUTROPHILS % 77.3 % (38.7-80.0); PLATELET COUNT 110 x10e3/uL (140-360); RED BLOOD COUNT 3.04 x10e6/uL (3.6-5.1)
[2020-10-26 07:36] LABS: ALBUMIN 3.2 g/dL (3.5-5.0); ALBUMIN/GLOBULIN RATIO 0.9 (0.8-2.0); ANION GAP 15.2 mmol/L (8-16); CALCIUM 9.5 mg/dL (8.4-10.2); CREATININE, SERUM 0.66 mg/dL (0.57-1.11); POTASSIUM 4.2 mmol/L (3.5-5.1)
[2020-10-26 08:47] LABS: ABG PCO2 93 mmHg (35-45); ABG PH 7.26 (7.35-7.45); ABG PO2 79 mmHg (80-105)
[2020-10-26 08:48] LABS: ABG HCO3 42 mmol/L (22-26); ABG TCO2 45
[2020-10-26] MEDS: ASCORBIC ACID 500 MG TAB PO SCH ×2 (08:55→17:03)
[2020-10-26] MEDS: EYE LUBRICANT OPTH OINT 3.5GM TUBE OP SCH ×2 (08:55→21:26)
[2020-10-26] MEDS: ZINC SULFATE 220 MG CAP PO SCH (08:55)
[2020-10-26] MEDS: ENOXAPARIN INJ 80 MG/0.8 ML SYR SC SCH ×2 (08:55→21:22)
[2020-10-26] MEDS: FUROSEMIDE INJ 100 MG in SODIUM CHLORIDE 0.9% 100 ML 90 ML IV SCH ×2 (08:55→19:39)
[2020-10-26] MEDS ORDERED: ACETAZOLAMIDE SODIUM 500 MG/VIAL IV ONE (10:15)
[2020-10-26] MEDS: LIDOCAINE 4% PATCH TP SCH (21:00)
[2020-10-26] MEDS: FENTANYL 2000MCG/NS 250 250 ML IV SCH (21:22)
[2020-10-26] MEDS ORDERED: SODIUM CHLORIDE 0.9% 1000ML 1,000 ML ONE ×2 (23:28→23:29)
[2020-10-27] VITALS (31 sets, daily range): BP systolic 99–132; BP diastolic 42–63
[2020-10-27] MEDS: PROPOFOL IV EMULSION 10MG/ML 100 ML IV SCH ×3 (01:22→21:00)
[2020-10-27] MEDS: ROCURONIUM 1250MG/NS 250 250 ML IV SCH (01:31)
[2020-10-27] MEDS: MIDAZOLAM HCL 5MG/ML 10ML VIAL 100 ML IV PRN ×5 (01:40→22:12)
[2020-10-27] MEDS: FENTANYL 2000MCG/NS 250 250 ML IV SCH ×3 (03:48→16:54)
[2020-10-27] MEDS: METOCLOPRAMIDE HCL 10 MG/2ML VIAL IV SCH ×3 (05:01→21:00)
[2020-10-27] MEDS: LEVOTHYROXINE SODIUM 50 MCG TAB PO SCH (05:01)
[2020-10-27] MEDS: FUROSEMIDE INJ 100 MG in SODIUM CHLORIDE 0.9% 100 ML 90 ML IV SCH ×2 (05:59→17:00)
[2020-10-27 06:41] LABS: BASOPHILS # (AUTO) 0.1 (0.0-0.1); BASOPHILS % 0.3 % (0.0-1.0); EOSINOPHILS # (AUTO) 0.6 (0.0-0.4); EOSINOPHILS % 3.7 % (0.0-6.0); HEMATOCRIT 28.8 % (34.2-44.1); HEMOGLOBIN 8.2 g/dL (12.0-16.0); LYMPHOCYTES # (AUTO) 0.9 (1.0-3.2); LYMPHOCYTES % 5.5 % (18.0-39.1); MEAN CORPUSCULAR HEMOGLOBIN 26.7 pg (28-32); MEAN CORPUSCULAR HGB CONC 28.5 g/dL (31-35); MEAN CORPUSCULAR VOLUME 93.8 fL (81-99); MONOCYTES # (AUTO) 0.7 (0.2-0.8); MONOCYTES % 4.5 % (4.4-11.3); NEUTROPHILS % 80.4 % (38.7-80.0); RED BLOOD COUNT 3.07 x10e6/uL (3.6-5.1); RED CELL DISTRIBUTION WIDTH 16.2 % (11.7-14.4)
[2020-10-27] MEDS: NOREPINEPHRINE 8 MG/D5W 250 ML 250 ML IV SCH ×2 (06:41→17:03)
[2020-10-27 06:48] LABS: PLATELET COUNT 69 x10e3/uL (140-360)
[2020-10-27 07:34] LABS: ANION GAP 12.5 mmol/L (8-16); POTASSIUM 3.5 mmol/L (3.5-5.1)
[2020-10-27 07:35] LABS: ALBUMIN/GLOBULIN RATIO 0.8 (0.8-2.0); CALCIUM 8.8 mg/dL (8.4-10.2); CREATININE, SERUM 0.55 mg/dL (0.57-1.11)
[2020-10-27] MEDS ORDERED: SODIUM CHLORIDE 0.9% 1000ML 2,000 ML ONE (08:19)
[2020-10-27] MEDS: ASCORBIC ACID 500 MG TAB PO SCH ×2 (08:33→17:02)
[2020-10-27] MEDS: ENOXAPARIN INJ 80 MG/0.8 ML SYR SC SCH ×2 (08:33→20:39)
[2020-10-27] MEDS: ZINC SULFATE 220 MG CAP PO SCH (08:33)
[2020-10-27] MEDS: EYE LUBRICANT OPTH OINT 3.5GM TUBE OP SCH ×2 (08:33→20:39)
[2020-10-27 09:04] LABS: ABG HCO3 47 mmol/L (22-26); ABG PCO2 90 mmHg (35-45); ABG PH 7.33 (7.35-7.45); ABG PO2 70 mmHg (80-105); ABG TCO2 50
[2020-10-27] MEDS ORDERED: ACETAZOLAMIDE SODIUM 500 MG/VIAL IV ONE (10:00)
[2020-10-27] MEDS ORDERED: ACETAMINOPHEN 325 MG TAB PO PRN (10:00)
[2020-10-27 16:01] LABS: ABG HCO3 48 mmol/L (22-26); ABG PCO2 94 mmHg (35-45); ABG PH 7.31 (7.35-7.45); ABG PO2 81 mmHg (80-105); ABG TCO2 > 50
[2020-10-27] MEDS: LIDOCAINE 4% PATCH TP SCH (20:39)
[2020-10-27] MEDS: CEFEPIME 2 GM in SODIUM CHLORIDE 0.9% 100 ML IV SCH (20:48)
[2020-10-28] VITALS (27 sets, daily range): BP systolic 101–142; BP diastolic 53–69
[2020-10-28] MEDS: FENTANYL 2000MCG/NS 250 250 ML IV SCH ×4 (00:22→21:50)
[2020-10-28] MEDS: ROCURONIUM 1250MG/NS 250 250 ML IV SCH (02:17)
[2020-10-28] MEDS: NOREPINEPHRINE 8 MG/D5W 250 ML 250 ML IV SCH ×3 (02:42→22:39)
[2020-10-28] MEDS: MIDAZOLAM HCL 5MG/ML 10ML VIAL 100 ML IV PRN ×4 (02:44→23:31)
[2020-10-28] MEDS: FUROSEMIDE INJ 100 MG in SODIUM CHLORIDE 0.9% 100 ML 90 ML IV SCH ×2 (03:04→12:28)
[2020-10-28] MEDS: LEVOTHYROXINE SODIUM 50 MCG TAB PO SCH (05:26)
[2020-10-28] MEDS: METOCLOPRAMIDE HCL 10 MG/2ML VIAL IV SCH ×3 (05:26→21:10)
[2020-10-28] MEDS: PROPOFOL IV EMULSION 10MG/ML 100 ML IV SCH ×2 (05:27→12:31)
[2020-10-28 06:10] LABS: BASOPHILS # (AUTO) 0.1 (0.0-0.1); BASOPHILS % 0.3 % (0.0-1.0); EOSINOPHILS # (AUTO) 0.4 (0.0-0.4); HEMOGLOBIN 8.1 g/dL (12.0-16.0); LYMPHOCYTES # (AUTO) 0.8 (1.0-3.2); LYMPHOCYTES % 4.1 % (18.0-39.1); MEAN CORPUSCULAR HEMOGLOBIN 26.3 pg (28-32); MEAN CORPUSCULAR HGB CONC 27.9 g/dL (31-35); MEAN CORPUSCULAR VOLUME 94.2 fL (81-99); MONOCYTES # (AUTO) 0.9 (0.2-0.8); MONOCYTES % 4.4 % (4.4-11.3); NEUTROPHILS # (AUTO) 17.6 (2.1-6.9); RED BLOOD COUNT 3.08 x10e6/uL (3.6-5.1); RED CELL DISTRIBUTION WIDTH 16.5 % (11.7-14.4)
[2020-10-28 06:17] LABS: PLATELET COUNT 31 x10e3/uL (140-360)
[2020-10-28 06:34] LABS: ALBUMIN 2.8 g/dL (3.5-5.0); ALBUMIN/GLOBULIN RATIO 0.7 (0.8-2.0); ANION GAP 13.7 mmol/L (8-16); CALCIUM 8.5 mg/dL (8.4-10.2); CREATININE, SERUM 0.6 mg/dL (0.57-1.11)
[2020-10-28] MEDS ORDERED: SODIUM CHLORIDE 0.9% 1000ML 2,000 ML ONE (07:35)
[2020-10-28 07:50] LABS: POTASSIUM 2.7 mmol/L (3.5-5.1)
[2020-10-28] MEDS ORDERED: Vancomycin IV 1 GM in SODIUM CHLORIDE 0.9% 250ML 250 ML IV ONE (08:00)
[2020-10-28] MEDS ORDERED: HEPARIN SOD (PORCINE) 1000 UNIT/ML SDV ONE (08:05)
[2020-10-28 09:27] LABS: ABG PH 7.27 (7.35-7.45)
[2020-10-28 09:28] LABS: ABG HCO3 49 mmol/L (22-26); ABG PCO2 107 mmHg (35-45); ABG PO2 63 mmHg (80-105); ABG TCO2 > 50
[2020-10-28 10:00] LABS: HYPOCHROMASIA MODERATE; PLATELET ESTIMATE MARKEDLY DECREASED; PLATELET MORPHOLOGY COMMENT FEW LARGE; RBC MORPHOLOGY COMMENT ABNORMAL
[2020-10-28] MEDS ORDERED: POTASSIUM CHLORIDE 20MEQ/100ML 200 ML IV ONE (10:00)
[2020-10-28 10:01] LABS: ANISOCYTOSIS SLIGHT; POLYCHROMASIA FEW
[2020-10-28] MEDS: EYE LUBRICANT OPTH OINT 3.5GM TUBE OP SCH ×2 (11:26→21:09)
[2020-10-28] MEDS ORDERED: SODIUM CHLORIDE 0.9% 100 ML ONE (11:26)
[2020-10-28] MEDS: CEFEPIME 2 GM in SODIUM CHLORIDE 0.9% 100 ML IV SCH ×2 (11:26→21:09)
[2020-10-28] MEDS: ENOXAPARIN SOD INJ 40 MG/0.4 ML SYR SC SCH ×2 (11:27→21:09)
[2020-10-28] MEDS: ASCORBIC ACID 500 MG TAB PO SCH ×2 (11:27→17:45)
[2020-10-28] MEDS: ZINC SULFATE 220 MG CAP PO SCH (11:27)
[2020-10-28] MEDS ORDERED: POTASSIUM CHLORIDE 20MEQ/100ML 100 ML IV ONE (15:30)
[2020-10-28 16:30] LABS: ABG PH 7.21 (7.35-7.45)
[2020-10-28 16:31] LABS: ABG HCO3 44 mmol/L (22-26); ABG PCO2 110 mmHg (35-45); ABG PO2 68 mmHg (80-105); ABG TCO2 47
[2020-10-28] MEDS: LIDOCAINE 4% PATCH TP SCH (21:00)
[2020-10-29] VITALS (28 sets, daily range): BP systolic 114–146; BP diastolic 53–97
[2020-10-29] MEDS: PROPOFOL IV EMULSION 10MG/ML 100 ML IV SCH ×3 (00:33→18:37)
[2020-10-29] MEDS: ROCURONIUM 1250MG/NS 250 250 ML IV SCH (04:32)
[2020-10-29] MEDS: MIDAZOLAM HCL 5MG/ML 10ML VIAL 100 ML IV PRN ×3 (04:33→18:39)
[2020-10-29] MEDS: FENTANYL 2000MCG/NS 250 250 ML IV SCH ×3 (04:33→18:39)
[2020-10-29] MEDS: METOCLOPRAMIDE HCL 10 MG/2ML VIAL IV SCH ×3 (05:55→21:18)
[2020-10-29] MEDS: LEVOTHYROXINE SODIUM 50 MCG TAB PO SCH (05:55)
[2020-10-29 06:21] LABS: BASOPHILS # (AUTO) 0.1 (0.0-0.1); BASOPHILS % 0.4 % (0.0-1.0); EOSINOPHILS # (AUTO) 0.4 (0.0-0.4); EOSINOPHILS % 1.8 % (0.0-6.0); HEMATOCRIT 25.9 % (34.2-44.1); HEMOGLOBIN 7.4 g/dL (12.0-16.0); LYMPHOCYTES # (AUTO) 1.6 (1.0-3.2); LYMPHOCYTES % 6.9 % (18.0-39.1); MEAN CORPUSCULAR HEMOGLOBIN 26.1 pg (28-32); MEAN CORPUSCULAR HGB CONC 28.6 g/dL (31-35); MEAN CORPUSCULAR VOLUME 91.5 fL (81-99); MONOCYTES # (AUTO) 1.2 (0.2-0.8); MONOCYTES % 5.3 % (4.4-11.3); NEUTROPHILS # (AUTO) 18.4 (2.1-6.9); NEUTROPHILS % 80.6 % (38.7-80.0); PLATELET COUNT 54 x10e3/uL (140-360); RED BLOOD COUNT 2.83 x10e6/uL (3.6-5.1); RED CELL DISTRIBUTION WIDTH 16.4 % (11.7-14.4)
[2020-10-29 06:51] LABS: ALBUMIN 2.9 g/dL (3.5-5.0); ALBUMIN/GLOBULIN RATIO 0.7 (0.8-2.0); ANION GAP 14.2 mmol/L (8-16); CALCIUM 9.3 mg/dL (8.4-10.2); CREATININE, SERUM 0.61 mg/dL (0.57-1.11); POTASSIUM 3.2 mmol/L (3.5-5.1)
[2020-10-29] MEDS: CEFEPIME 2 GM in SODIUM CHLORIDE 0.9% 100 ML IV SCH ×2 (08:34→20:18)
[2020-10-29] MEDS: ZINC SULFATE 220 MG CAP PO SCH (08:35)
[2020-10-29] MEDS: EYE LUBRICANT OPTH OINT 3.5GM TUBE OP SCH ×2 (08:35→20:17)
[2020-10-29] MEDS: ENOXAPARIN SOD INJ 40 MG/0.4 ML SYR SC SCH ×2 (08:35→20:17)
[2020-10-29] MEDS: ASCORBIC ACID 500 MG TAB PO SCH ×2 (08:35→18:52)
[2020-10-29] MEDS: NOREPINEPHRINE 8 MG/D5W 250 ML 250 ML IV SCH ×2 (09:15→18:38)
[2020-10-29 09:21] LABS: ABG PH 7.35 (7.35-7.45)
[2020-10-29 09:22] LABS: ABG HCO3 46 mmol/L (22-26); ABG PCO2 82 mmHg (35-45); ABG PO2 91 mmHg (80-105); ABG TCO2 49
[2020-10-29] MEDS ORDERED: SODIUM CHLORIDE 0.9% 1000ML 1,000 ML ONE (11:43)
[2020-10-29] MEDS ORDERED: HEPARIN SOD (PORCINE) 1000 UNIT/ML SDV ONE (11:43)
[2020-10-29 17:27] LABS: ABG PH 7.33 (7.35-7.45)
[2020-10-29 17:28] LABS: ABG HCO3 41 mmol/L (22-26); ABG PCO2 79 mmHg (35-45); ABG PO2 94 mmHg (80-105); ABG TCO2 44
[2020-10-29 18:22] LABS: BASOPHILS # (AUTO) 0.1 (0.0-0.1); BASOPHILS % 0.4 % (0.0-1.0); EOSINOPHILS # (AUTO) 0.4 (0.0-0.4); EOSINOPHILS % 2.2 % (0.0-6.0); HEMATOCRIT 24.2 % (34.2-44.1); HEMOGLOBIN 7.1 g/dL (12.0-16.0); LYMPHOCYTES # (AUTO) 1.1 (1.0-3.2); LYMPHOCYTES % 6.7 % (18.0-39.1); MEAN CORPUSCULAR HEMOGLOBIN 27.5 pg (28-32); MEAN CORPUSCULAR HGB CONC 29.3 g/dL (31-35); MEAN CORPUSCULAR VOLUME 93.8 fL (81-99); MONOCYTES # (AUTO) 0.5 (0.2-0.8); MONOCYTES % 3.1 % (4.4-11.3); NEUTROPHILS # (AUTO) 13.9 (2.1-6.9); NEUTROPHILS % 82.4 % (38.7-80.0); RED BLOOD COUNT 2.58 x10e6/uL (3.6-5.1); RED CELL DISTRIBUTION WIDTH 16.6 % (11.7-14.4)
[2020-10-29 18:38] LABS: AMYLASE 25 U/L (25-125); LIPASE 17 U/L (8-78)
[2020-10-29 19:25] LABS: PLATELET COUNT 13 x10e3/uL (140-360)
[2020-10-29] MEDS ORDERED: SODIUM CHLORIDE 0.9% 250ML 250 ML IV ONE (19:30)
[2020-10-29] MEDS: LIDOCAINE 4% PATCH TP SCH (20:17)
[2020-10-29 22:18] LABS: PLATELET ESTIMATE MARKEDLY DECREASED; PLATELET MORPHOLOGY COMMENT FEW LARGE; POLYCHROMASIA FEW; RBC MORPHOLOGY COMMENT ABNORMAL
[2020-10-29 22:19] LABS: ANISOCYTOSIS MODERATE; HYPOCHROMASIA MODERATE; POIKILOCYTOSIS SLIGHT
[2020-10-30] VITALS (25 sets, daily range): BP systolic 116–162; BP diastolic 54–85
[2020-10-30] MEDS: FENTANYL 2000MCG/NS 250 250 ML IV SCH ×4 (02:04→23:40)
[2020-10-30] MEDS: MIDAZOLAM HCL 5MG/ML 10ML VIAL 100 ML IV PRN ×6 (02:05→23:41)
[2020-10-30] MEDS: LEVOTHYROXINE SODIUM 50 MCG TAB PO SCH ×2 (05:36→06:08)
[2020-10-30] MEDS: METOCLOPRAMIDE HCL 10 MG/2ML VIAL IV SCH ×3 (05:36→21:14)
[2020-10-30] MEDS: NOREPINEPHRINE 8 MG/D5W 250 ML 250 ML IV SCH (06:07)
[2020-10-30] MEDS: PROPOFOL IV EMULSION 10MG/ML 100 ML IV SCH ×3 (06:08→22:45)
[2020-10-30] MEDS: ROCURONIUM 1250MG/NS 250 250 ML IV SCH (06:17)
[2020-10-30] MEDS ORDERED: POTASSIUM CHLORIDE 20MEQ/100ML 200 ML IV SCH (08:45)
[2020-10-30] MEDS: EYE LUBRICANT OPTH OINT 3.5GM TUBE OP SCH ×2 (09:00→21:13)
[2020-10-30 09:15] LABS: ABG HCO3 44 mmol/L (22-26); ABG PCO2 99 mmHg (35-45); ABG PH 7.25 (7.35-7.45); ABG PO2 63 mmHg (80-105); ABG TCO2 47
[2020-10-30] MEDS: CEFEPIME 2 GM in SODIUM CHLORIDE 0.9% 100 ML IV SCH ×2 (09:48→21:13)
[2020-10-30] MEDS: ENOXAPARIN SOD INJ 40 MG/0.4 ML SYR SC SCH (09:48)
[2020-10-30] MEDS: ZINC SULFATE 220 MG CAP PO SCH (09:56)
[2020-10-30] MEDS: ASCORBIC ACID 500 MG TAB PO SCH ×2 (09:56→16:50)
[2020-10-30 09:58] LABS: BASOPHILS # (AUTO) 0.1 (0.0-0.1); BASOPHILS % 0.7 % (0.0-1.0); EOSINOPHILS # (AUTO) 0.5 (0.0-0.4); EOSINOPHILS % 2.6 % (0.0-6.0); HEMATOCRIT 29.6 % (34.2-44.1); HEMOGLOBIN 8.4 g/dL (12.0-16.0); LYMPHOCYTES # (AUTO) 1.4 (1.0-3.2); LYMPHOCYTES % 7.1 % (18.0-39.1); MEAN CORPUSCULAR HEMOGLOBIN 27.1 pg (28-32); MEAN CORPUSCULAR HGB CONC 28.4 g/dL (31-35); MEAN CORPUSCULAR VOLUME 95.5 fL (81-99); MONOCYTES # (AUTO) 1.2 (0.2-0.8); NEUTROPHILS # (AUTO) 15.2 (2.1-6.9); NEUTROPHILS % 77.6 % (38.7-80.0); RED CELL DISTRIBUTION WIDTH 16.5 % (11.7-14.4)
[2020-10-30 10:16] LABS: PLATELET COUNT 16 x10e3/uL (140-360)
[2020-10-30 10:19] LABS: ALBUMIN/GLOBULIN RATIO 0.7 (0.8-2.0); ANION GAP 13.4 mmol/L (8-16); CALCIUM 9.7 mg/dL (8.4-10.2); CREATININE, SERUM 0.54 mg/dL (0.57-1.11); POTASSIUM 4.4 mmol/L (3.5-5.1)
[2020-10-30] MEDS ORDERED: SODIUM CHLORIDE 0.9% 250ML 250 ML ONE (10:27)
[2020-10-30 11:58] LABS: BAND NEUTROPHILS % (MANUAL) 1 %; EOSINOPHILS % (MANUAL) 4 % (0-7); LYMPHOCYTES % (MANUAL) 12 % (19-48); METAMYELOCYTES % (MANUAL) 1 % (0-0); MONOCYTES % (MANUAL) 8 % (3.4-9.0); MYELOCYTES % (MANUAL) 3 % (0-0); NEUTROPHILS % (MANUAL) 69 % (40-74); NUCLEATED RED BLOOD CELLS 4; PROMYELOCYTES % (MANUAL) 1 % (0-0)
[2020-10-30 11:59] LABS: ANISOCYTOSIS SLIGHT; HYPOCHROMASIA SLIGHT; PLATELET ESTIMATE MARKEDLY DECREASED; PLATELET MORPHOLOGY COMMENT NORMAL; POLYCHROMASIA FEW; RBC MORPHOLOGY COMMENT NORMAL
[2020-10-30] MEDS ORDERED: DEXAMETHASONE SOD PHOS 10 MG/1 ML VIAL IV ONE ×2 (12:30→17:00)
[2020-10-30 13:52] LABS: INR 1.07; PROTHROMBIN TIME 14.1 seconds (11.9-14.5)
[2020-10-30 13:54] LABS: PARTIAL THROMBOPLASTIN TIME 94.2 seconds (23.8-35.5)
[2020-10-30 14:29] LABS: ABG HCO3 44 mmol/L (22-26); ABG PCO2 103 mmHg (35-45); ABG PH 7.24 (7.35-7.45); ABG PO2 70 mmHg (80-105); ABG TCO2 47
[2020-10-30 15:14] LABS: BASOPHILS # (AUTO) 0.1 (0.0-0.1); BASOPHILS % 0.4 % (0.0-1.0); EOSINOPHILS # (AUTO) 0.3 (0.0-0.4); EOSINOPHILS % 1.4 % (0.0-6.0); HEMATOCRIT 26.5 % (34.2-44.1); HEMOGLOBIN 7.9 g/dL (12.0-16.0); LYMPHOCYTES # (AUTO) 0.9 (1.0-3.2); LYMPHOCYTES % 4.8 % (18.0-39.1); MEAN CORPUSCULAR HEMOGLOBIN 28.5 pg (28-32); MEAN CORPUSCULAR HGB CONC 29.8 g/dL (31-35); MEAN CORPUSCULAR VOLUME 95.7 fL (81-99); MONOCYTES # (AUTO) 0.7 (0.2-0.8); MONOCYTES % 3.7 % (4.4-11.3); NEUTROPHILS # (AUTO) 15.2 (2.1-6.9); NEUTROPHILS % 83.1 % (38.7-80.0); RED BLOOD COUNT 2.77 x10e6/uL (3.6-5.1); RED CELL DISTRIBUTION WIDTH 16.4 % (11.7-14.4)
[2020-10-30 15:40] LABS: PLATELET COUNT 10 x10e3/uL (140-360)
[2020-10-30] MEDS: LIDOCAINE 4% PATCH TP SCH (21:13)
[2020-10-31] VITALS (25 sets, daily range): BP systolic 93–138; BP diastolic 44–73
[2020-10-31] MEDS: MIDAZOLAM HCL 5MG/ML 10ML VIAL 100 ML IV PRN ×4 (04:15→18:45)
[2020-10-31] MEDS: PROPOFOL IV EMULSION 10MG/ML 100 ML IV SCH ×4 (04:30→18:46)
[2020-10-31 06:19] LABS: BASOPHILS # (AUTO) 0.2 (0.0-0.1); BASOPHILS % 0.8 % (0.0-1.0); EOSINOPHILS # (AUTO) 0.1 (0.0-0.4); EOSINOPHILS % 0.2 % (0.0-6.0); HEMATOCRIT 27.9 % (34.2-44.1); HEMOGLOBIN 7.9 g/dL (12.0-16.0); LYMPHOCYTES # (AUTO) 1.6 (1.0-3.2); LYMPHOCYTES % 7.4 % (18.0-39.1); MEAN CORPUSCULAR HEMOGLOBIN 27.2 pg (28-32); MEAN CORPUSCULAR HGB CONC 28.3 g/dL (31-35); MEAN CORPUSCULAR VOLUME 96.2 fL (81-99); MONOCYTES # (AUTO) 1.6 (0.2-0.8); MONOCYTES % 7.4 % (4.4-11.3); NEUTROPHILS # (AUTO) 15.8 (2.1-6.9); NEUTROPHILS % 76.1 % (38.7-80.0); RED CELL DISTRIBUTION WIDTH 16.3 % (11.7-14.4)
[2020-10-31 06:30] LABS: PLATELET COUNT 14 x10e3/uL (140-360)
[2020-10-31] MEDS: METOCLOPRAMIDE HCL 10 MG/2ML VIAL IV SCH ×3 (06:32→21:08)
[2020-10-31] MEDS: FENTANYL 2000MCG/NS 250 250 ML IV SCH ×2 (06:32→20:52)
[2020-10-31 06:55] LABS: ALBUMIN 2.9 g/dL (3.5-5.0); ALBUMIN/GLOBULIN RATIO 0.7 (0.8-2.0); CALCIUM 9.6 mg/dL (8.4-10.2); POTASSIUM 4.9 mmol/L (3.5-5.1)
[2020-10-31 06:59] LABS: ANION GAP 12.9 mmol/L (8-16)
[2020-10-31 07:26] LABS: CREATININE, SERUM 0.53 mg/dL (0.57-1.11)
[2020-10-31 08:33] LABS: ANISOCYTOSIS SLIGHT; BAND NEUTROPHILS % (MANUAL) 1 %; LYMPHOCYTES % (MANUAL) 6 % (19-48); MONOCYTES % (MANUAL) 9 % (3.4-9.0); MYELOCYTES % (MANUAL) 8 % (0-0); NEUTROPHILS % (MANUAL) 75 % (40-74); NUCLEATED RED BLOOD CELLS 4; PLATELET ESTIMATE MARKEDLY DECREASED; PROMYELOCYTES % (MANUAL) 1 % (0-0); RBC MORPHOLOGY COMMENT ABNORMAL
[2020-10-31 08:34] LABS: PLATELET MORPHOLOGY COMMENT NORMAL; POLYCHROMASIA FEW
[2020-10-31 08:36] LABS: HYPOCHROMASIA SLIGHT; OVALOCYTES FEW; POIKILOCYTOSIS SLIGHT
[2020-10-31 08:54] LABS: ABG PH 7.26 (7.35-7.45)
[2020-10-31 08:55] LABS: ABG HCO3 44 mmol/L (22-26); ABG PCO2 98 mmHg (35-45); ABG PO2 79 mmHg (80-105); ABG TCO2 47
[2020-10-31] MEDS: CEFEPIME 2 GM in SODIUM CHLORIDE 0.9% 100 ML IV SCH (09:19)
[2020-10-31] MEDS: ROCURONIUM 1250MG/NS 250 250 ML IV SCH (09:19)
[2020-10-31] MEDS: ASCORBIC ACID 500 MG TAB PO SCH ×2 (09:19→18:44)
[2020-10-31] MEDS: EYE LUBRICANT OPTH OINT 3.5GM TUBE OP SCH ×2 (09:19→21:08)
[2020-10-31] MEDS: ZINC SULFATE 220 MG CAP PO SCH (09:19)
[2020-10-31] MEDS ORDERED: Vancomycin IV 1 GM in SODIUM CHLORIDE 0.9% 250ML 250 ML IV ONE (12:00)
[2020-10-31] MEDS: MEROPENEM 1 GM in SODIUM CHLORIDE 0.9% 100 ML IV SCH ×2 (13:43→21:08)
[2020-10-31 15:25] LABS: BASOPHILS # (AUTO) 0.1 (0.0-0.1); BASOPHILS % 0.5 % (0.0-1.0); EOSINOPHILS # (AUTO) 0.2 (0.0-0.4); EOSINOPHILS % 1.2 % (0.0-6.0); HEMATOCRIT 23.3 % (34.2-44.1); LYMPHOCYTES # (AUTO) 1.5 (1.0-3.2); LYMPHOCYTES % 9.8 % (18.0-39.1); MEAN CORPUSCULAR HEMOGLOBIN 27.9 pg (28-32); MEAN CORPUSCULAR HGB CONC 28.8 g/dL (31-35); MEAN CORPUSCULAR VOLUME 97.1 fL (81-99); MONOCYTES # (AUTO) 1.5 (0.2-0.8); MONOCYTES % 9.4 % (4.4-11.3); NEUTROPHILS % 70.9 % (38.7-80.0); RED CELL DISTRIBUTION WIDTH 16.6 % (11.7-14.4); RETICULOCYTE % 5.8 % (0.8-2.2)
[2020-10-31 15:33] LABS: HEMOGLOBIN 6.7 g/dL (12.0-16.0)
[2020-10-31 16:03] LABS: FERRITIN 766.71 ng/mL (4.63-204.00)
[2020-10-31] MEDS ORDERED: SODIUM CHLORIDE 0.9% 250ML 250 ML IV ONE (16:45)
[2020-10-31] MEDS: NOREPINEPHRINE 8 MG/D5W 250 ML 250 ML IV SCH (18:44)
[2020-10-31] MEDS ORDERED: SODIUM CHLORIDE 0.9% 1000ML 1,000 ML ONE ×3 (18:59→20:01)
[2020-10-31] MEDS: LIDOCAINE 4% PATCH TP SCH (21:08)
[2020-10-31] MEDS ORDERED: SODIUM CHLORIDE 0.9% 250ML 250 ML ONE (21:10)
[2020-10-31] MEDS ORDERED: HEPARIN SOD (PORCINE) 1000 UNIT/ML SDV ONE (22:26)
[2020-11-01] VITALS (26 sets, daily range): BP systolic 99–144; BP diastolic 40–61
[2020-11-01] MEDS: PROPOFOL IV EMULSION 10MG/ML 100 ML IV SCH ×5 (00:26→20:25)
[2020-11-01] MEDS: MIDAZOLAM HCL 5MG/ML 10ML VIAL 100 ML IV PRN ×4 (01:26→19:37)
[2020-11-01] MEDS: FENTANYL 2000MCG/NS 250 250 ML IV SCH ×4 (04:00→23:50)
[2020-11-01] MEDS: METOCLOPRAMIDE HCL 10 MG/2ML VIAL IV SCH ×3 (05:41→21:16)
[2020-11-01] MEDS: MEROPENEM 1 GM in SODIUM CHLORIDE 0.9% 100 ML IV SCH ×3 (05:41→21:16)
[2020-11-01 05:42] LABS: BASOPHILS # (AUTO) 0.1 (0.0-0.1); BASOPHILS % 0.5 % (0.0-1.0); EOSINOPHILS # (AUTO) 0.5 (0.0-0.4); EOSINOPHILS % 2.4 % (0.0-6.0); HEMATOCRIT 29.5 % (34.2-44.1); HEMOGLOBIN 8.6 g/dL (12.0-16.0); LYMPHOCYTES # (AUTO) 1.5 (1.0-3.2); LYMPHOCYTES % 7.8 % (18.0-39.1); MEAN CORPUSCULAR HEMOGLOBIN 28.1 pg (28-32); MEAN CORPUSCULAR HGB CONC 29.2 g/dL (31-35); MEAN CORPUSCULAR VOLUME 96.4 fL (81-99); MONOCYTES # (AUTO) 1.5 (0.2-0.8); MONOCYTES % 7.8 % (4.4-11.3); NEUTROPHILS # (AUTO) 13.7 (2.1-6.9); NEUTROPHILS % 71.3 % (38.7-80.0); RED BLOOD COUNT 3.06 x10e6/uL (3.6-5.1); RED CELL DISTRIBUTION WIDTH 16.2 % (11.7-14.4)
[2020-11-01] MEDS: LEVOTHYROXINE SODIUM 50 MCG TAB PO SCH (05:42)
[2020-11-01 05:49] LABS: PLATELET COUNT 18 x10e3/uL (140-360)
[2020-11-01 06:04] LABS: ALBUMIN 2.8 g/dL (3.5-5.0); ALBUMIN/GLOBULIN RATIO 0.7 (0.8-2.0); ANION GAP 11.8 mmol/L (8-16); CALCIUM 9.5 mg/dL (8.4-10.2); CREATININE, SERUM 0.53 mg/dL (0.57-1.11); POTASSIUM 4.8 mmol/L (3.5-5.1)
[2020-11-01 06:54] LABS: BAND NEUTROPHILS % (MANUAL) 2 %; EOSINOPHILS % (MANUAL) 2 % (0-7); LYMPHOCYTES % (MANUAL) 2 % (19-48); METAMYELOCYTES % (MANUAL) 1 % (0-0); MONOCYTES % (MANUAL) 5 % (3.4-9.0); MYELOCYTES % (MANUAL) 6 % (0-0); NEUTROPHILS % (MANUAL) 81 % (40-74); NUCLEATED RED BLOOD CELLS 2; PROMYELOCYTES % (MANUAL) 1 % (0-0)
[2020-11-01 06:55] LABS: PLATELET ESTIMATE MARKEDLY DECREASED
[2020-11-01 06:56] LABS: POLYCHROMASIA FEW
[2020-11-01 06:59] LABS: ANISOCYTOSIS SLIGHT; PLATELET MORPHOLOGY COMMENT FEW LARGE; RBC MORPHOLOGY COMMENT NORMAL
[2020-11-01] MEDS: EYE LUBRICANT OPTH OINT 3.5GM TUBE OP SCH ×2 (07:55→21:15)
[2020-11-01] MEDS: ZINC SULFATE 220 MG CAP PO SCH (07:56)
[2020-11-01] MEDS: ASCORBIC ACID 500 MG TAB PO SCH ×2 (07:56→16:57)
[2020-11-01 08:40] LABS: ABG PH 7.23 (7.35-7.45)
[2020-11-01 08:41] LABS: ABG HCO3 42 mmol/L (22-26); ABG PCO2 101 mmHg (35-45); ABG PO2 76 mmHg (80-105); ABG TCO2 45
[2020-11-01] MEDS: NOREPINEPHRINE 8 MG/D5W 250 ML 250 ML IV SCH ×2 (10:16→20:30)
[2020-11-01] MEDS ORDERED: SODIUM CHLORIDE 0.9% 250ML 250 ML ONE ×2 (10:16→23:03)
[2020-11-01] MEDS ORDERED: SODIUM CHLORIDE 0.9% 50ML 50 ML ONE (10:16)
[2020-11-01] MEDS ORDERED: DEXAMETHASONE SOD PHOS 10 MG/1 ML VIAL IV ONE (10:30)
[2020-11-01] MEDS ORDERED: EYE LUBRICANT OPTH OINT 3.5GM TUBE OP PRN (12:00)
[2020-11-01] MEDS: ROCURONIUM 1250MG/NS 250 250 ML IV SCH (16:57)
[2020-11-01] MEDS: LIDOCAINE 4% PATCH TP SCH (21:16)
[2020-11-01] MEDS: CEFTRIAXONE 2 GM in SODIUM CHLORIDE 0.9% 100 ML IV SCH (22:34)
[2020-11-02] VITALS (25 sets, daily range): BP systolic 89–142; BP diastolic 45–68
[2020-11-02] MEDS: PROPOFOL IV EMULSION 10MG/ML 100 ML IV SCH ×2 (00:15→09:54)
[2020-11-02] MEDS: MIDAZOLAM HCL 5MG/ML 10ML VIAL 100 ML IV PRN ×5 (01:28→22:00)
[2020-11-02 05:51] LABS: BASOPHILS # (AUTO) 0.2 (0.0-0.1); EOSINOPHILS # (AUTO) 0.3 (0.0-0.4); EOSINOPHILS % 1.3 % (0.0-6.0); HEMATOCRIT 27.8 % (34.2-44.1); HEMOGLOBIN 8.1 g/dL (12.0-16.0); LYMPHOCYTES # (AUTO) 1.9 (1.0-3.2); LYMPHOCYTES % 7.9 % (18.0-39.1); MEAN CORPUSCULAR HEMOGLOBIN 27.8 pg (28-32); MEAN CORPUSCULAR HGB CONC 29.1 g/dL (31-35); MEAN CORPUSCULAR VOLUME 95.5 fL (81-99); MONOCYTES % 8.4 % (4.4-11.3); NEUTROPHILS # (AUTO) 16.5 (2.1-6.9); NEUTROPHILS % 69.1 % (38.7-80.0); PLATELET COUNT 65 x10e3/uL (140-360); RED BLOOD COUNT 2.91 x10e6/uL (3.6-5.1); RED CELL DISTRIBUTION WIDTH 16.7 % (11.7-14.4)
[2020-11-02] MEDS: METOCLOPRAMIDE HCL 10 MG/2ML VIAL IV SCH ×3 (06:06→21:45)
[2020-11-02] MEDS: LEVOTHYROXINE SODIUM 50 MCG TAB PO SCH (06:06)
[2020-11-02 06:41] LABS: ALBUMIN/GLOBULIN RATIO 0.8 (0.8-2.0); ANION GAP 14.6 mmol/L (8-16); CALCIUM 9.3 mg/dL (8.4-10.2); CREATININE, SERUM 0.59 mg/dL (0.57-1.11); POTASSIUM 4.6 mmol/L (3.5-5.1)
[2020-11-02] MEDS: FENTANYL 2000MCG/NS 250 250 ML IV SCH ×2 (06:43→22:00)
[2020-11-02] MEDS ORDERED: SODIUM CHLORIDE 0.9% 1000ML 2,000 ML IV PRN (08:30)
[2020-11-02] MEDS ORDERED: HEPARIN SOD (PORCINE) 1000 UNIT/ML SDV IV PRN (08:30)
[2020-11-02] MEDS ORDERED: ALBUMIN 25% 12.5GM 0.25 GM/ML BTL IV PRN (08:30)
[2020-11-02] MEDS ORDERED: SODIUM CHLORIDE 0.9% 250ML 500 ML IV PRN (08:30)
[2020-11-02] MEDS: CEFTRIAXONE 2 GM in SODIUM CHLORIDE 0.9% 100 ML IV SCH ×2 (09:53→21:45)
[2020-11-02] MEDS: ASCORBIC ACID 500 MG TAB PO SCH ×2 (09:53→17:36)
[2020-11-02] MEDS: EYE LUBRICANT OPTH OINT 3.5GM TUBE OP SCH ×2 (09:53→21:45)
[2020-11-02] MEDS: ZINC SULFATE 220 MG CAP PO SCH (09:53)
[2020-11-02] MEDS: ROCURONIUM 1250MG/NS 250 250 ML IV SCH (09:54)
[2020-11-02] MEDS: FOLIC ACID 1 MG TAB PO SCH (09:54)
[2020-11-02 10:11] LABS: ABG HCO3 38 mmol/L (22-26); ABG PCO2 78 mmHg (35-45); ABG PO2 81 mmHg (80-105); ABG TCO2 41
[2020-11-02] MEDS: NOREPINEPHRINE 8 MG/D5W 250 ML 250 ML IV SCH ×2 (10:13→18:38)
[2020-11-02] MEDS ORDERED: HEPARIN 25,000 UNIT 1,100 UNIT in DEXTROSE 5% 250ML 250 ML IV SCH ×2 (10:30→11:00)
[2020-11-02 13:39] LABS: ANISOCYTOSIS SLIGHT; EOSINOPHILS % (MANUAL) 2 % (0-7); LYMPHOCYTES % (MANUAL) 7 % (19-48); METAMYELOCYTES % (MANUAL) 1 % (0-0); MONOCYTES % (MANUAL) 6 % (3.4-9.0); MYELOCYTES % (MANUAL) 5 % (0-0); NEUTROPHILS % (MANUAL) 79 % (40-74); NUCLEATED RED BLOOD CELLS 3; PLATELET ESTIMATE MODERATELY DECREASED; PLATELET MORPHOLOGY COMMENT NORMAL
[2020-11-02 13:40] LABS: HYPOCHROMASIA SLIGHT; POLYCHROMASIA FEW; RBC MORPHOLOGY COMMENT ABNORMAL
[2020-11-02] MEDS: DOCUSATE SODIUM LIQD 100 MG/10 ML UDC NG SCH (17:36)
[2020-11-02] MEDS: PROPOFOL IV EMULSION 50 ML IV PRN ×2 (18:00→21:35)
[2020-11-02] MEDS ORDERED: ALBUMIN 25% 25GM 100ML 0.25 GM/ML BTL IV ONE (18:30)
[2020-11-02] MEDS: LIDOCAINE 4% PATCH TP SCH (21:00)
[2020-11-03] VITALS (12 sets, daily range): BP systolic 32–124; BP diastolic 22–59
[2020-11-03] MEDS: MIDAZOLAM HCL 5MG/ML 10ML VIAL 100 ML IV PRN (03:15)
[2020-11-03] MEDS: PROPOFOL IV EMULSION 50 ML IV PRN ×2 (03:51→07:05)
[2020-11-03] MEDS: NOREPINEPHRINE 8 MG/D5W 250 ML 250 ML IV SCH (04:41)
[2020-11-03] MEDS ORDERED: SODIUM BICARBONATE 8.4% 50 ML VIAL IV ONE (05:41)
[2020-11-03] MEDS ORDERED: SODIUM BICARBONATE 8.4% SYRING 100 ML ONE ×3 (05:49→08:00)
[2020-11-03] MEDS ORDERED: DEXTROSE 5% 50ML 50 ML IV ONE (05:55)
[2020-11-03] MEDS ORDERED: VASOPRESSIN INJ 20 UNIT/ML VIAL ONE (05:57)
[2020-11-03] MEDS: FENTANYL 2000MCG/NS 250 250 ML IV SCH (06:00)
[2020-11-03] MEDS ORDERED: VASOPRESSIN 60 UNIT in DEXTROSE 5% 50ML 57 ML IV PRN (06:00)
[2020-11-03] MEDS: LEVOTHYROXINE SODIUM 50 MCG TAB PO SCH (06:30)
[2020-11-03] MEDS: METOCLOPRAMIDE HCL 10 MG/2ML VIAL IV SCH (06:30)
[2020-11-03 06:49] LABS: BASOPHILS # (AUTO) 0.3 (0.0-0.1); BASOPHILS % 0.9 % (0.0-1.0); EOSINOPHILS # (AUTO) 0.5 (0.0-0.4); HEMATOCRIT 23.6 % (34.2-44.1); LYMPHOCYTES % 7.5 % (18.0-39.1); MEAN CORPUSCULAR HEMOGLOBIN 27.5 pg (28-32); MEAN CORPUSCULAR HGB CONC 28.4 g/dL (31-35); MEAN CORPUSCULAR VOLUME 96.7 fL (81-99); MONOCYTES # (AUTO) 1.4 (0.2-0.8); MONOCYTES % 5.1 % (4.4-11.3); NEUTROPHILS # (AUTO) 19.4 (2.1-6.9); NEUTROPHILS % 72.2 % (38.7-80.0); PLATELET COUNT 59 x10e3/uL (140-360); RED BLOOD COUNT 2.44 x10e6/uL (3.6-5.1); RED CELL DISTRIBUTION WIDTH 17.6 % (11.7-14.4)
[2020-11-03 07:06] LABS: HEMOGLOBIN 6.7 g/dL (12.0-16.0)
[2020-11-03 07:19] LABS: ALBUMIN 3.3 g/dL (3.5-5.0); ALBUMIN/GLOBULIN RATIO 0.8 (0.8-2.0); ANION GAP 14.7 mmol/L (8-16); CALCIUM 9.7 mg/dL (8.4-10.2); CREATININE, SERUM 0.66 mg/dL (0.57-1.11); POTASSIUM 4.7 mmol/L (3.5-5.1)
[2020-11-03] MEDS ORDERED: SODIUM BICARBONATE 8.4% INJ 50 ML SYR IV ONE ×2 (07:39→07:49)
[2020-11-03 09:03] LABS: ABG HCO3 33 mmol/L (22-26); ABG PCO2 102 mmHg (35-45); ABG PH 7.12 (7.35-7.45); ABG PO2 36 mmHg (80-105); ABG TCO2 36
[2020-11-03] MEDS: DOCUSATE SODIUM LIQD 100 MG/10 ML UDC NG SCH (09:14)
[2020-11-03] MEDS: EYE LUBRICANT OPTH OINT 3.5GM TUBE OP SCH (09:14)
[2020-11-03] MEDS: FOLIC ACID 1 MG TAB PO SCH (09:14)
[2020-11-03] MEDS: ZINC SULFATE 220 MG CAP PO SCH (09:14)
[2020-11-03] MEDS: ASCORBIC ACID 500 MG TAB PO SCH (09:14)
[2020-11-03] MEDS: CEFTRIAXONE 2 GM in SODIUM CHLORIDE 0.9% 100 ML IV SCH (09:15)
[2020-11-03 10:04] LABS: BAND NEUTROPHILS % (MANUAL) 1 %; LYMPHOCYTES % (MANUAL) 3 % (19-48); METAMYELOCYTES % (MANUAL) 2 % (0-0); MONOCYTES % (MANUAL) 2 % (3.4-9.0); MYELOCYTES % (MANUAL) 12 % (0-0); NEUTROPHILS % (MANUAL) 80 % (40-74); NUCLEATED RED BLOOD CELLS 7
[2020-11-03 10:05] LABS: ANISOCYTOSIS SLIGHT; HYPOCHROMASIA SLIGHT; PLATELET ESTIMATE MODERATELY DECREASED; PLATELET MORPHOLOGY COMMENT NORMAL; RBC MORPHOLOGY COMMENT ABNORMAL
[2020-11-03] MEDS ORDERED: EPINEPHRINE HCL SYRINGE ONE (13:13)
[2020-11-03] MEDS ORDERED: SODIUM BICARBONATE 8.4% INJ 50 ML SYR ONE (13:13)
== END 2020-11-03 21:15 | disposition expired | DRG 207 ==
LOC: FSED 17:41 → ERHOLD 20:04 → MED/SURG3 21:57 → IMCU 10-01 21:46 → ICU 10-07 16:42 → COVIDICU 10-22 22:00 → IMCU 11-03 15:47
PROVIDERS: ADMIT Family Medicine; ATTEND Family Medicine
PROC: 0BH17EZ Insertion of Endotracheal Airway into Trachea, Via Natural or Artificial Opening (ICD-10-PCS; principal; 2020-10-08)
PROC: 5A1955Z Respiratory Ventilation, Greater than 96 Consecutive Hours (ICD-10-PCS; 2020-10-08)
PROC: 03HB33Z Insertion of Infusion Device into Right Radial Artery, Percutaneous Approach (ICD-10-PCS; 2020-10-08)
PROC: 3E043XZ Introduction of Vasopressor into Central Vein, Percutaneous Approach (ICD-10-PCS; 2020-10-08)
PROC: 0W9B00Z Drainage of Left Pleural Cavity with Drainage Device, Open Approach (ICD-10-PCS; 2020-10-13)
PROC: 0W9900Z Drainage of Right Pleural Cavity with Drainage Device, Open Approach (ICD-10-PCS; 2020-10-15)
PROC: 02HV33Z Insertion of Infusion Device into Superior Vena Cava, Percutaneous Approach (ICD-10-PCS; 2020-10-18)
PROC: 0W9900Z Drainage of Right Pleural Cavity with Drainage Device, Open Approach (ICD-10-PCS; 2020-10-19)
PROC: 30243N1 Transfusion of Nonautologous Red Blood Cells into Central Vein, Percutaneous Approach (ICD-10-PCS; 2020-10-24)
PROC: 02HV33Z Insertion of Infusion Device into Superior Vena Cava, Percutaneous Approach (ICD-10-PCS; 2020-10-26)
PROC: B548ZZA Ultrasonography of Superior Vena Cava, Guidance (ICD-10-PCS; 2020-10-26)
PROC: 5A1D70Z Performance of Urinary Filtration, Intermittent, Less than 6 Hours Per Day (ICD-10-PCS; 2020-10-27)
PROC: 02HV33Z Insertion of Infusion Device into Superior Vena Cava, Percutaneous Approach (ICD-10-PCS; 2020-11-02)
PROC: B548ZZA Ultrasonography of Superior Vena Cava, Guidance (ICD-10-PCS; 2020-11-02)
PROC: 0W9900Z Drainage of Right Pleural Cavity with Drainage Device, Open Approach (ICD-10-PCS; 2020-11-02)
PROC: 0W9900Z Drainage of Right Pleural Cavity with Drainage Device, Open Approach (ICD-10-PCS; 2020-11-03)
PROC: 5A12012 Performance of Cardiac Output, Single, Manual (ICD-10-PCS; 2020-11-03)
DX: U07.1 COVID-19 (principal); A41.89 Other specified sepsis; J12.82 Pneumonia due to coronavirus disease 2019; J93.0 Spontaneous tension pneumothorax; J80 Acute respiratory distress syndrome; J69.0 Pneumonitis due to inhalation of food and vomit; J15.211 Pneumonia due to Methicillin susceptible Staphylococcus aureus; J15.6 Pneumonia due to other Gram-negative bacteria; R65.21 Severe sepsis with septic shock; J93.9 Pneumothorax, unspecified; N17.9 Acute kidney failure, unspecified; E87.3 Alkalosis; E87.2 Acidosis; E46 Unspecified protein-calorie malnutrition; E87.1 Hypo-osmolality and hyponatremia; R57.9 Shock, unspecified; J93.83 Other pneumothorax; J93.82 Other air leak; I82.621 Acute embolism and thrombosis of deep veins of right upper extremity; D50.0 Iron deficiency anemia secondary to blood loss (chronic); E03.9 Hypothyroidism, unspecified; Z88.2 Allergy status to sulfonamides; J45.909 Unspecified asthma, uncomplicated; I46.9 Cardiac arrest, cause unspecified; E87.6 Hypokalemia; R19.7 Diarrhea, unspecified; D69.6 Thrombocytopenia, unspecified; E88.09 Other disorders of plasma-protein metabolism, not elsewhere classified; K75.9 Inflammatory liver disease, unspecified
CPT/HCPCS: 36415; 36569; 36600; 71045; 71260; 74018; 80048; 80053; 81003; 82150; 82550; 82607; 82728; 82746; 82805; 82948; 83010; 83540; 83615; 83690; 84145; 84466; 85025; 85045; 85384; 85610; 85730; 86022; 86140; 86704; 86706; 86850; 86900; 86920; 87040; 87070; 87071; 87186; 87205; 87340; 90962; 92950; 93970; 93971; 94002; 94003; 99251; 99284; J0171; J0330; J0456; J0692; J0696; J1100; J1450; J1644; J1650; J1940; J2185; J2250; J2405; J2543; J2765; J2920; J3010; J3370; J3480; J7030; J7040; J7050; J7121; P9016; P9034; P9047; Q9967; U0002